=== PATIENT | female | born 1965 | race Two or more races ===

== ENCOUNTER 2025-02-27 16:59 | Inpatient (IN) | payer MEDICAID, SELFPAY ==
[2025-02-27] VITALS (7 sets, daily range): BP systolic 90–114; BP diastolic 53–67; PULSE 76–124; RESP 12–76; TEMP 36.5–37.7; O2SAT 95–98; BMI 32.9
--- NOTE | 2025-02-27 17:12 | EKG_ITS ---
[facility] Test Date: 2025-02-27 Pat Name: WALTER WEINBERG Department: Room: - Gender: Female [employer]: : 1965 Requested By: Airam Simon Order Number: [id number] Reading MD: Airam Simon Measurements Intervals [place] Rate: 102 P: 14 ID: [id number] QRS: -13 QRSD: 83 T: 32 QT: 316 QTc: 413 Interpretive Statements SINUS TACHYCARDIA POSSIBLE ANTERIOR MYOCARDIAL INFARCTION , PROBABLY OLD [30 ms Q WAVE IN V3/V4, OR R < 0.2 mV IN V4] PROBABLE INFERIOR MYOCARDIAL INFARCTION , PROBABLY OLD [35 ms Q WAVE IN II/aVF] No previous ECG available for comparison /store/S0/[id number].pdf
[2025-02-27 18:22] LABS: Base Excess, Venous 1 (-3-3); O2 Saturation, Venous 84 % (96-97); PCO2, Venous 32 mmHg (36-56); PO2, Venous 42 mmHg (15-58); pH, Venous 7.48 (7.33-7.66)
[2025-02-27 18:23] LABS: Lactate (Lactic Acid) 2.6 mMol/L (0.4-2.0)
[2025-02-27 18:44] LABS: Basophils # (Auto) 0.1 Thou/mm3 (0.0-0.2); Basophils % (Auto) 0 % (0-2.5); Eosinophils # (Auto) 0.1 Thou/mm3 (0.0-0.5); Eosinophils % (Auto) 0 % (0-10); Hematocrit 38.8 % (36.0-46.0); Hemoglobin 13.8 g/dL (12.0-16.0); Immature Granulocytes % (Auto) 1 % (0-0); Immature Granulocytes Auto 0.22 Thou/mm3 (0.00-0.00); Lymphocytes # (Auto) 0.8 Thou/mm3 (1.0-4.8); Lymphocytes % (Auto) 4 % (10-50); Mean Corpuscular HGB Conc 35.6 g/dl (31.0-37.0); Mean Corpuscular Volume 87 fL (80-100); Monocytes # (Auto) 0.8 Thou/mm3 (0.0-0.8); Monocytes % (Auto) 4 % (0-12); Neutrophils # (Auto) 16.3 Thou/mm3 (1.8-7.7); Neutrophils % (Auto) 90 % (37-80); Nucleated Red Blood Cell % 0 /100 WBC (0); Platelet Count 164 Thou/mm3 (140-440); RDW Standard Deviation 38.4 fL (36.4-46.3); Red Blood Count 4.45 Miln/mm3 (4.00-5.20); White Blood Count 18.2 Thou/mm3 (3.6-11.0)
[2025-02-27 18:52] LABS: Beta Hydroxybutyrate 0.4 mmol/L (<0.6)
[2025-02-27 19:33] LABS: Alanine Aminotransferase 25 U/L (10-49); Albumin, Serum 4.4 gm/dL (3.4-4.8); Albumin/Globulin Ratio 1.4 (1.2-2.2); Alkaline Phosphatase 109 U/L (46-116); Anion Gap 13 (7-16); Aspartate Amino Transferase 41 U/L (0-34); BUN/Creatinine Ratio 14 Ratio (12-20); Bilirubin,Total 1.5 mg/dL (0.3-1.2); Blood Urea Nitrogen 19 mg/dL (9-23); Calcium 9.8 mg/dL (8.3-10.6); Calcium (Corrected) 9.8 mg/dL (8.5-10.1); Chloride 96 mMol/L (98-107); Creatinine (Component) 1.4 mg/dL (0.6-1.3); Estimated Creatinine Clearance 42.3 mL/min (>60); Globulin 3.1 gm/dL (2.3-3.5); Osmolality,Calculated 285 (275-295); Potassium 4.8 mMol/L (3.4-5.1); Sodium 132 mMol/L (136-145); Total Protein 7.5 gm/dL (5.7-8.2); Troponin I 0.024 ng/mL (0.0-0.045); eGFR 43 See Note
[2025-02-27 19:33] LABS: Collection Type, Urine Clean Catch
[2025-02-27 19:39] LABS: Glucose 441 mg/dL (74-106)
[2025-02-27 20:18] LABS: Bilirubin,Urine Negative (Negative); Blood,Urine 1+ (Negative); Clarity,Urine Turbid (Clear/Hazy); Color,Urine Lt-Yellow (Lt Yel-Yel); Glucose, Urine 4+ (Negative); Ketones,Urine 1+ (Negative); Leukocyte Esterase,Urine Positive (Negative); Nitrite,Urine Negative (Negative); PH,Urine 6.5 (5.0-7.0); Protein,Urine 2+ (Neg - Trace); RBC,Urine 13 /hpf (0-3); Specific Gravity,Urine 1.024 (1.001-1.035); Squamous Epithelial Cell,Urine 1 /hpf (0-5); Urobilinogen,Urine Negative mg/dL (0.0-1.0); WBC,Urine 236 /hpf (0-5)
[2025-02-27 20:41] LABS: Glucose Estimated Average 200 mg/dL (80-131); Hemoglobin A1C 8.6 % Hgb (4.8-6.0)
[2025-02-27 21:10] LABS: Reflex Lactate? Y
[2025-02-27 21:49] LABS: Lactic Acid, 3 HR 1.6 mMol/L (0.4-2.0)
[2025-02-27] MEDS: SODIUM CHLORIDE 0.9% 1000 ML 1,503 ML 1503 ML IV (22:27)
[2025-02-27 22:42] LABS: INR 1.1 (0.9-1.3); Partial Thromboplastin Time 24.5 Seconds (22.0-36.0)
[2025-02-27 22:46] LABS: B-Type Natriuretic Peptide 163 pg/mL (0-100)
[2025-02-27] MEDS: cefTRIAXone/D5w 1gm IV premix 1 GM/50 ML BAG IV (23:33)
[2025-02-27 23:45] LABS: Magnesium 1.7 mg/dL (1.6-2.6); Phosphorous 1.1 mg/dL (2.4-5.1); Procalcitonin 71.29 ng/ml (0.0-0.49)
[2025-02-28] VITALS (18 sets, daily range): BP systolic 89–182; BP diastolic 49–90; PULSE 65–149; RESP 12–95; TEMP 36–39.4; O2SAT 95–99; BMI 19.4
[2025-02-28 00:34] LABS: LDH (Lactate Dehydrogenase) 232 U/L (120-246)
--- NOTE | 2025-02-28 01:57 | XR_ITS ---
Examination: CT abdomen and pelvis without contrast. Coronal 3-D reconstructions. Sagittal 2-D reconstructions. Date and time of exam:February 28, 2025 at 0247 hours INDICATIONS: Abdominal pain and right flank pain onset today CTDI: vol (mGy): 7.89 DLP: (mGycm): 463 Technique: Axial images of the abdomen have been obtained, 3 mm slice thickness Intravenous contrast material has not been administered. Low dose protocols were performed. One or more of the following dose reduction techniques were used; automated exposure control, adjustment of the mA and/or KV according to patient size, use of iterative reconstruction technique. Findings: No focal liver or splenic lesions No gallstones No pancreatic or adrenal mass 3 mm right renal calculus Mild right hydronephrosis no ureteral calculi Normal appendix No bladder mass or bladder calculi IMPRESSION: Findings most consistent with right urinary tract infection, clinical correlation advised
--- NOTE | 2025-02-28 02:08 | PD.EDFEVER ---
ED Fever RME/HPI General Chief Complaint: Fever Stated Complaint: FEVER, GENERAL WEAKNESS Time Seen by Provider: 02/27/25 17:12 Arrival date/time: 02/27/25 16:59 RME / HPI RME / HPI Narrative: Dr. Mcwilliams?s Main ED Evaluation: Related Data Home Medications ?Medication ?Instructions ?Recorded ?Confirmed glipizide 5 mg tablet 5 mg PO ACBR #0 tabs 09/18/14 lisinopril 20 mg tablet 20 mg PO QDAY #0 tabs 09/18/14 Allergies Allergy/AdvReac Type Severity Reaction Status Date / Time NKA* Allergy Uncoded 02/27/25 17:40 Review of Systems Review of Systems Systems Reviewed: All systems reviewed, normal except as documented Past Medical History Social History SMOKING STATUS: Never smoker Physical Exam Narrative Physical exam: GENERAL APPEARANCE: alert and oriented x 4, well-developed, well-nourished, no acute distress VITALS: All vitals were reviewed and the pulse ox is % on room air, which is normal according to my interpretation. HEENT: Normocephalic, atraumatic; pupils equal, round, reactive to light; EOMI; mucous membranes pink, moist; oropharynx clear NECK: Supple LUNGS: CTABL; no wheezes, no rales, no rhonchi HEART: Regular rate, regular rhythm; normal S1, S2; no murmurs ABDOMEN: non distended; normal BS; soft, no tenderness, no guarding, no rebound; no masses, no organomegaly, no hernia BACK: no CVA tenderness EXTREMITIES: atraumatic; no edema NEUROLOGIC: awake; alert and oriented x4; cranial nerves II-XII grossly intact; no focal sensory or motor deficits PSYCHIATRIC: appropriate mood and affect SKIN: warm, dry, normal color; no rashes Course Quality Measures none Orders Category Date Time Status Bedside Blood Glucose STAT Care 02/27/25 17:15 Completed Bedside COVID-19 Antigen Test NOW Care 02/28/25 00:23 Active Manager Office Services STAT Care 02/27/25 21:46 Active Continuous Pulse Oximetry STAT Care 02/27/25 21:46 Completed EKG (ED ONLY) *Do not use* NOW Care 02/27/25 17:12 Completed Insert IV NOW Care 02/27/25 21:46 Active NPO STAT Care 02/27/25 21:46 Active Orthostatic Vitals X1 Care 02/27/25 17:12 Active Strict Intake and Output Routine Care 02/27/25 21:[address] abdomen pelvis wo con Stat Exams 02/28/25 01:57 Ordered EKG (ED Only) Stat Exams 02/27/25 17:12 Ordered B-Type Natriuretic Peptide Stat Lab 02/27/25 21:44 Completed Beta Hydroxybutyrate Stat Lab 02/27/25 17:56 Completed Blood Culture (Lab) Stat Lab 02/27/25 22:15 Received CBC Stat Lab 02/27/25 17:56 Completed Comprehensive Metabolic Panel Stat Lab 02/27/25 17:56 Completed Glycohemoglobin w (eAG) Stat Lab 02/27/25 17:56 Completed LDH (Lactate Dehydrogenase) Stat Lab 02/27/25 21:44 Completed Lactate (Lactic Acid) Stat Lab 02/27/25 17:56 Completed Lactic Acid, 3 HR Stat Lab 02/27/25 21:44 Completed Magnesium Stat Lab 02/27/25 21:44 Completed Partial Thromboplastin Time Stat Lab 02/27/25 17:56 Completed Phosphorous Stat Lab 02/27/25 21:44 Completed Procalcitonin Stat Lab 02/27/25 21:44 Completed Prothrombin Time with INR Stat Lab 02/27/25 17:56 Completed Troponin I Stat Lab 02/27/25 17:56 Completed Urinalysis Stat Lab 02/27/25 19:23 Completed Urine Culture Stat Lab 02/27/25 19:23 Received VBG [Venous Blood Gas] Stat Lab 02/27/25 17:56 Completed Acetaminophen Supp [Tylenol Supp] Med 02/27/25 21:45 Active 650 mg NM Q8HR PRN Ondansetron Inj [Zofran Inj] Med 02/27/25 21:45 Active 4 mg IV Q6HR PRN Sodium Chloride 0.9% 1000 ml [Ns] 1,000 ml Med 02/28/25 01:59 Active IV 999 mls/hr Sodium Chloride 0.9% 1000 ml [Ns] 1,503 ml Med 02/27/25 21:45 Discontinued IV 1,503 mls/hr cefTRIAXone/D5w 1gm IV premix [Rocephin/D5w 1gm IV Med 02/27/25 21:45 Discontinued premix] 1 gm in 50 ml IV X1 Oxygen Delivery NOW RT 02/27/25 21:46 Active Vital Signs Vital signs: Vital Signs Temperature 99.8 F 02/27/25 17:23 Pulse Rate 115 H 02/27/25 17:23 Respiratory Rate 16 02/27/25 17:23 Blood Pressure 114/63 02/27/25 17:23 Pulse Oximetry (%) 95 02/27/25 17:23 Oxygen Delivery Method Room Air 02/27/25 17:23 Fever MDM Narrative MDM Narrative:: Scribe Attestation: 02/28/25 Eber Gay, Tiff Ramirez am scribing for and in the presence of Dr. Mcwilliams. Patient does not have an elevated anion gap or ketonemia. Her ABG does not show acidosis. There is no evidence of DKA. Patient data External records reviewed:: [facility] previous records (Per chart review, patient has no previous ED visits or admissions to this facility.) Clinical information provided by:: patient Social determinants that could affect healthcare access:: none Evaluation data The following diagnostics were reviewed and interpreted by me:: lab results and radiology exam(s) Lab and/or radiology exams considered but not ordered:: none Medications / Prescriptions Medications or Prescriptions considered but not ordered:: none Medication administrations:: Medication Administration History Acetaminophen (Acetaminophen Supp 650 Mg Supp) 650 mg NM Q8HR PRN PRN Reason: Fever > 100.4 Stop: 03/29/25 21:44 Sodium Chloride (Ns) 1,000 mls @ 999 mls/hr IV .Q1H1M ONE Stop: 02/28/25 02:59 Ondansetron HCl (Ondansetron Inj 2 Mg/Ml Inj 2 Ml) 4 mg IV Q6HR PRN PRN Reason: NAUSEA OR VOMITING Stop: 03/29/25 21:44 Discontinued Medications Ceftriaxone Sodium/Dextrose (Rocephin/D5w 1gm Iv Premix) 1 gm in 50 mls @ 100 mls/hr IV X1 ONE Stop: 02/27/25 22:14 Last Infusion: 02/28/25 00:05 Dose: Infused Documented By: Admin: 02/27/25 23:33 Dose: 100 mls/hr Documented By: CVL Sodium Chloride (Ns) 1,503 mls @ 1,503 mls/hr 30 ml/kg infuse over 60 min (1503 ml) IV .Q1H ONE Stop: 02/27/25 22:44 Last Infusion: 02/28/25 00:05 Dose: Infused Documented By: Admin: 02/27/25 22:27 Dose: 1,503 mls/hr Documented By: CVL see above Discharge Plan Plan Patient Disposition: Admit Acute Care w/in Hospital Disposition Comment: Stable Prescriptions/Referrals Prescriptions/Med Rec: No Action lisinopril 20 MG tablet 20 mg PO QDAY Qty: 0 glipizide 5 MG tablet 5 mg PO ACBR Qty: 0 Referrals: Praveen Ramirez MD [Primary Care Provider] - In 1 week Problem List Clinical Impression: Sepsis, Pyelonephritis, Hyperglycemia without ketosis Patient/Caregiver Discharge Instructions Additional Instructions: ADMIT TO RESIDENT SERVICE Print Language: Macedonian Stand Alone Forms: Debbie Award Info., Patient Portal Info Letter PA/PHYSICAL BIOCHEMIST Supervising Physician PA/PHYSICAL BIOCHEMIST Supervising Physician: DR. MCWILLIAMS
[2025-02-28] MEDS: SODIUM CHLORIDE 0.9% 1000 ML 1,000 ML 999 ML IV ×2 (02:24→11:34)
--- NOTE | 2025-02-28 04:33 | PRELIM_ITS ---
CT scan of the abdomen and pelvis without intravenous contrast (axial sections with sagittal and coronal reformats) February 28, 2025 0247 hours Clinical History: right flank pain No prior study is available for comparison. Findings: Bibasilar dependant atelectasis is seen. The right kidney is enlarged with perinephric fat stranding. There is mild hydroureteronephrosis. No evidence of ureteric calculus. The liver, gallbladder, pancreas, spleen, left kidney and adrenals are unremarkable on this noncontrast study. Fluid filled small bowel loops and right colon are noted, nonspecific. No evidence of bowel dilatation. The appendix is within normal limits. The urinary bladder is unremarkable. There is no free fluid or free air. There are atheromatous changes of the abdominal aorta and its visceral branches. There is no adenopathy. A small fat-containing umbilical hernia is present. Mild degenerative changes are identified in the spine. Impression: Findings are suspicious for right pyelonephritis. Recommend clinical correlation and followup with intravenous contrast. Other findings as described above. Report Electronically Signed By: Adam Ingram 02/28/2025 4:33:20 AM [EST]
[2025-02-28] MEDS: ACETAMINOPHEN IVPB 1,000 MG/100 ML VIAL 250 MG IV ×2 (04:50→11:50)
--- NOTE | 2025-02-28 05:03 | PD.EDADDENDU ---
Emergency Room Addendum Addendum Narrative: There is no note by the midlevel. Will tell the oncoming provider in the morning that GAY Cordon needs to write her note and sign it. CT result as below. 0502: Discussed case with [the resident physician, attending Dr. Tavarez] from Hospitalist service regarding admission. Discussed patients ED course, exam findings, labs, and radiology results. The Hospitalist [agrees] to accept the patient for admission. RADIOLOGY RESULTS: [place] Preliminary Report Draft [facility] Record#: [id number] Birthdate: 1965 Age/Sex: 60 / F Location: [facility] Attending Dr: Ordering Physician: Date of Service: Procedure(s): Accession Number(s): cc: ~ CT scan of the abdomen and pelvis without intravenous contrast (axial sections with sagittal and coronal reformats) February 28, 2025 0247 hours Clinical History: right flank pain No prior study is available for comparison. Findings: Bibasilar dependant atelectasis is seen. The right kidney is enlarged with perinephric fat stranding. There is mild hydroureteronephrosis. No evidence of ureteric calculus. The liver, gallbladder, pancreas, spleen, left kidney and adrenals are unremarkable on this noncontrast study. Fluid filled small bowel loops and right colon are noted, nonspecific. No evidence of bowel dilatation. The appendix is within normal limits. The urinary bladder is unremarkable. There is no free fluid or free air. There are atheromatous changes of the abdominal aorta and its visceral branches. There is no adenopathy. A small fat-containing umbilical hernia is present. Mild degenerative changes are identified in the spine. Impression: Findings are suspicious for right pyelonephritis. Recommend clinical correlation and followup with intravenous contrast. Other findings as described above. Report Electronically Signed By: Adam Ingram 02/28/2025 4:33:20 AM
--- NOTE | 2025-02-28 06:20 | PD.RESHP ---
Documentation for date of: 02/28/25 [facility] History of Present Illness History of present illness: The patient is a 60-year-old female with significant past medical history of essential hypertension, diabetes mellitus type 2, hyperlipidemia presented to ED with chief complaint of burning micturition for 4 days. Her symptoms were associated with right lower abdominal pain and generalized weakness for past 2 days. She also reported severe chills, and subjective fever, associated with drenching. She was none comprehensive while interacting with her family members and has been on her bed for past 2 days, and was brought to the ED. During my evaluation, patient was alert and oriented x 3. She reported having 1 episode of vomiting, but denied any headache, lightheadedness, chest pain, SOB, any changes in bowel habit or leg swelling. In the ED her vitals were significant for pulse 115, white count 18.2, and temperature reading up to 102.9 meeting 3/4 SIRS criteria, with initial altered mental status, sodium 132, chloride 96, creatinine 1.4, GFR 43, blood sugar 441, A1c 8.6, phosphorus 1.1, total bilirubin 1.5, AST 41, BNP 163, Pro-Crow 71.29, UA revealed turbid urine, protein 2+, glucose 4+, ketones 1+, blood 1+, leukocyte esterase positive, WBC 236, RBC 13, and abdomen/pelvis CT was significant for prelim read of right pyelonephritis without any renal stones. PMH: As mentioned above PSHX: Hysterectomy a long time ago Social history: Denies alcohol, smoking or illicit drug use Medications: Janumet 50/thousand mg daily, others to be reconciled Allergies: No known allergies Review of Systems Review of Systems Systems Reviewed: All systems reviewed, normal except as documented Exam Vital Signs Temp Pulse Resp BP Pulse Ox O2 Del Method 98.6 F 111 H 18 103/55 L 95 Room Air 02/28/25 05:58 02/28/25 05:58 02/28/25 05:58 02/28/25 05:58 02/28/25 05:58 02/28/25 05:58 Narrative Exam General: No acute distress, Alert and Oriented x 3 HEENT: Moist mucous membranes, oropharynx clear Neck: Supple, No masses, No JVD CVS: S1S2 Regular rate and rhythm, No murmurs, rubs or gallops Lungs: Clear to auscultation with no accessory use, no wheeze no rhonchi Abd: Soft, White sign negative, +BS, no organomegaly, severe right renal angle tenderness Ext: No edema, warm and well perfused Skin: No rash Psych: Appropriate mood and affect Results: Labs 02/28/25 09:46 02/28/25 11:40 Labs: Short CBC 02/27/25 Range/Units 17:56 WBC 18.2 H (3.6-11.0) Thou/mm3 Hgb 13.8 (12.0-16.0) g/dL Hct 38.8 (36.0-46.0) % Plt Count 164 (140-440) Thou/mm3 BMP 02/27/25 17:56 Sodium 132 L Potassium 4.8 Chloride 96 L Carbon Dioxide 23.0 BUN 19 Creatinine 1.4 H Glucose 441 H* Calcium 9.8 Cardiac Enzymes 02/27/25 Range/Units 17:56 Troponin I 0.024 (0.0-0.045) ng/mL Liver Function 02/27/25 Range/Units 17:56 Total Bilirubin 1.5 H (0.3-1.2) mg/dL AST 41 H (0-34) U/L ALT 25 (10-49) U/L Alkaline Phosphatase 109 (46-116) U/L Albumin 4.4 (3.4-4.8) gm/dL Urine 02/27/25 Range/Units 19:23 Urine Color Lt-Yellow (Lt Yel-Yel) Urine Clarity Turbid A (Clear/Hazy) Urine pH 6.5 (5.0-7.0) Ur Specific [place] 1.024 (1.001-1.035) Urine Protein 2+ A (Neg - Trace) Urine Glucose (UA) 4+ A (Negative) ABG Interpretation ABG results: 02/27/25 17:56 VBG pH 7.48 VBG pCO2 32 L VBG pO2 42 VBG Base Excess 1 Quality Measures Quality Measures VTE prophylaxis Medications Home Medications and Allergies Home Medications ?Medication ?Instructions ?Recorded ?Confirmed ?Type lisinopril 20 mg tablet 20 mg PO QDAY #0 tabs 09/18/14 02/28/25 History atenolol 25 mg tablet 25 mg PO QDAY 02/28/25 02/28/25 History glimepiride 2 mg tablet 2 mg PO BID 02/28/25 02/28/25 History simvastatin 20 mg tablet 20 mg PO HS 02/28/25 02/28/25 History Allergies Allergy/AdvReac Type Severity Reaction Status Date / Time No Known Allergies Allergy Unverified 02/28/25 09:12 Visit Medications Acetaminophen (Acetaminophen Supp 650 Mg Supp) 650 mg CA Q8HR PRN PRN Reason: Fever > 100.4 Stop: 03/29/25 21:44 Hydrocodone Bitart/Acetaminophen (Hydrocodone/Apap 5/325 Tablet) 1 tab PO Q6HR PRN PRN Reason: PAIN SCALE 4-6 (Moderate Stop: 03/05/25 05:57 Dextrose (Dextrose 50%-Water Inj 50 Ml Syringe) 25 ml IV Q15MIN PRN PRN Reason: BG 50-70 responsive npo pt Stop: 03/30/25 06:17 Dextrose (Dextrose 50%-Water Inj 50 Ml Syringe) 50 ml IV Q15MIN PRN PRN Reason: BG <50 OR BG <70 & pt unresponsive Stop: 03/30/25 06:17 Glucagon (Glucagon Inj 1 Mg Vial) 1 mg IM Q15MIN PRN PRN Reason: BG <70, and no IV access Heparin Sodium (Porcine) (Heparin Sod Inj 5000 Unit/Ml Vial) 5,000 unit SC Q8HR ALECIA Stop: 03/14/25 05:59 Hydromorphone HCl (Hydromorphone Inj 2 Mg/Ml Vial) 0.5 mg IVP Q30MIN PRN PRN Reason: PAIN Stop: 03/02/25 05:59 Acetaminophen (Ofirmev Inj) 1,000 mg in 100 mls @ 250 mls/hr IV Q6HR ALECIA Stop: 03/01/25 00:23 Last Infusion: 02/28/25 05:08 Dose: Infused Ceftriaxone Sodium/Dextrose (Rocephin/D5w 1gm Iv Premix) 1 gm in 50 mls @ 100 mls/hr IV QDAY ALECIA Stop: 03/07/25 08:59 Potassium Phosphate (Pot Phos 15 Mmol In Ns 250 Ml) 15 mmol in 250 mls @ 62.5 mls/hr IV Q4HR ALECIA Stop: 02/28/25 13:59 Insulin Glargine (Insulin Glargine (Lantus) 5 Unit/0.05 Ml (Per 5 Units)) 6 unit SC QDAY [facility] Stop: 03/30/25 08:59 Insulin Human Lispro (Insulin Lispro (Admelog) 1 Unit/0.01 Ml Unit) 0 unit SC ACHS [facility]; Protocol Stop: 03/30/25 07:29 Ondansetron HCl (Ondansetron Inj 2 Mg/Ml Inj 2 Ml) 4 mg IV Q6HR PRN PRN Reason: NAUSEA OR VOMITING Stop: 03/29/25 21:44 Discontinued Medications Ceftriaxone Sodium/Dextrose (Rocephin/D5w 1gm Iv Premix) 1 gm in 50 mls @ 100 mls/hr IV X1 ONE Stop: 02/27/25 22:14 Last Infusion: 02/28/25 00:05 Dose: Infused Sodium Chloride (Ns) 1,503 mls @ 1,503 mls/hr 30 ml/kg infuse over 60 min (1503 ml) IV .Q1H ONE Stop: 02/27/25 22:44 Last Infusion: 02/28/25 00:05 Dose: Infused Sodium Chloride (Ns) 1,000 mls @ 999 mls/hr IV .Q1H1M ONE Stop: 02/28/25 02:59 Last Infusion: 02/28/25 03:46 Dose: Infused Assessment & Plan Plan The patient is a [age]-year-old female with significant past medical history of essential hypertension, diabetes mellitus type 2, hyperlipidemia presented to ED with chief complaint of burning micturition for 4 days. Her symptoms were associated with right lower abdominal pain and generalized weakness for past 2 days. She also reported severe chills, and subjective fever, associated with drenching. The patient is being managed for severe sepsis secondary to right pyelonephritis. #Severe sepsis secondary to #Right pyelonephritis Patient presented with right lower abdominal pain, burning micturition and generalized weakness. Her symptoms were associated with severe chills, subjective fever and drenching. Met 3/4 SIRS criteria with pulse 115, white count 18.2, temperature meeting up to 102.9, and initially endorgan failure as altered mental status with lactic acid of 2.6. Pro-Crow 71.29, UA revealed turbid urine, protein 2+, glucose 4+, ketones 1+, blood 1+, leukocyte esterase positive, WBC 236, RBC 13, and abdomen/pelvis CT was significant for prelim read of right pyelonephritis without any renal stones. Patient received bolus IV normal saline 30 cc/kg body weight, and was given 1 dose of IV ceftriaxone 1 g. - Continue on ceftriaxone IV 1 g daily - Urine and blood culture sent - Daily a.m. labs for CBC, CMP and electrolytes - Pain management with p.o. Perkins and IV hydromorphone as needed - Continue to monitor closely #HHS #Diabetes mellitus type 2 Patient presented with blood sugar of 441 and altered mental status A1c 8.6 - Started on sliding scale insulin lispro ACHS and Lantus 7 units daily - Daily a.m. labs for blood sugar #Severe hypophosphatemia Presented with phosphorus of 1.1 Likely secondary to sepsis - Ordered 30 mmol of potassium phosphate - Continue to monitor phosphate level and replete as needed #MOOKIE Prerenal secondary to dehydration and poor oral intake in the setting of sepsis secondary to right pyelonephritis Presented with creatinine 1.4 and GFR 43, no previous labs to compare Patient received bolus IV normal saline 30 cc/kg body weight - Avoid nephrotoxic drugs - Renally dose medications - Daily a.m. labs for CMP and electrolytes #Mild hyperbilirubinemia #Mild transaminitis Likely secondary to severe sepsis Presented with total bilirubin of 1.5 and AST 41, but patient did not had any right upper quadrant abdominal pain and White sign was negative - Continue to treat underlying sepsis - Continue to monitor daily a.m. labs for CMP #Mild hypovolemic hypoosmolar hyponatremia Likely in the setting of decreased p.o. intake further complicated by severe sepsis secondary to right pyelonephritis Presented with sodium 132 and chloride 96 -Patient received 30 cc/kg bolus IV normal saline in the ED - Continue to monitor CMP in the morning Health maintenance: Dispo: Patient admitted to telemetry unit for further management of severe sepsis secondary to right pyelonephritis Diet: Carb consistent diet DVT prophylaxis: Subcu heparin CODE STATUS: Full code The patient's management plan was discussed with my attending physician MD Luke King MD, PGY2 Attending Provider Attestation/Addendum I attest that I was physically present for the evaluation, physical examination, lab and imaging review of the patient with the residents. I discussed the case with the residents and agree with the findings and plans of care as documented above. Patient is a 60-year-old female with past medical history of hypertension, diabetes mellitus, hyperlipidemia who presented to the ED with complaints of burning micturition for 4 days. Patient is also having right flank pain. In the ED, she was found to be tachycardic, had WBC count of 18.2, temperature 102.9, creatinine 1.4, blood glucose 447, total bilirubin 1.5, procalcitonin 71.29. Urinalysis showed turbid urine with [address] abdomen/pelvis showed right pyelonephritis without renal stones. We will admit the patient for management of sepsis secondary to right pyelonephritis. We will start her on IV Rocephin. Patient also received 30 cc/kg IV fluid bolus. We will obtain cultures and start her on analgesics as needed. Also started insulin regimen for diabetes. Valerio Tavarez MD
[2025-02-28] MEDS: INSULIN LISPRO (AdmeLOG) 1 UNIT/0.01 ML UNIT SC ×4 (07:36→21:05)
[2025-02-28] MEDS: POT PHOS 15 mMol in NS 250 ML 15 MMOL/250 ML BAG 62.5 MMOL IV ×2 (07:54→11:51)
[2025-02-28] MEDS: cefTRIAXone/D5w 1gm IV premix 1 GM/50 ML BAG IV (08:54)
[2025-02-28] MEDS: INSULIN GLARGINE (Lantus) 5 UNIT/0.05 ML (PER 5 UNITS) 6 UNIT SC (09:03)
[2025-02-28] MEDS: Magnesium Sulfate 2 GM Ivpb 2 GM/50 ML BAG IV (10:09)
[2025-02-28 10:21] LABS: Basophils % (Auto) 0 % (0-2.5); Eosinophils % (Auto) 0 % (0-10); Hematocrit 33.9 % (36.0-46.0); Immature Granulocytes % (Auto) 1 % (0-0); Immature Granulocytes Auto 0.13 Thou/mm3 (0.00-0.00); Lymphocytes # (Auto) 0.9 Thou/mm3 (1.0-4.8); Lymphocytes % (Auto) 6 % (10-50); Mean Corpuscular HGB Conc 35.4 g/dl (31.0-37.0); Mean Corpuscular Volume 88 fL (80-100); Monocytes # (Auto) 0.4 Thou/mm3 (0.0-0.8); Monocytes % (Auto) 2 % (0-12); Neutrophils # (Auto) 14.6 Thou/mm3 (1.8-7.7); Neutrophils % (Auto) 91 % (37-80); Nucleated Red Blood Cell % 0 /100 WBC (0); Platelet Count 135 Thou/mm3 (140-440); RDW Standard Deviation 38.8 fL (36.4-46.3); Red Blood Count 3.87 Miln/mm3 (4.00-5.20)
[2025-02-28 10:56] LABS: Alanine Aminotransferase 22 U/L (10-49); Albumin, Serum 3.6 gm/dL (3.4-4.8); Albumin/Globulin Ratio 1.5 (1.2-2.2); Alkaline Phosphatase 119 U/L (46-116); Anion Gap 12 (7-16); Aspartate Amino Transferase 31 U/L (0-34); BUN/Creatinine Ratio 16 Ratio (12-20); Bilirubin,Total 0.6 mg/dL (0.3-1.2); Blood Urea Nitrogen 23 mg/dL (9-23); Calcium (Corrected) 8.3 mg/dL (8.5-10.1); Carbon Dioxide 22.1 mMol/L (20.0-31.0); Chloride 104 mMol/L (98-107); Creatinine (Component) 1.4 mg/dL (0.6-1.3); Estimated Creatinine Clearance 43.9 mL/min (>60); Globulin 2.4 gm/dL (2.3-3.5); Glucose 147 mg/dL (74-106); Osmolality,Calculated 282 (275-295); Potassium 3.8 mMol/L (3.4-5.1); Sodium 138 mMol/L (136-145); eGFR 43 See Note
--- NOTE | 2025-02-28 11:24 | CHAP ---
Patient was visited by the Spiritual Care Volunteer who prayed for them. (Volunteer was in the hospital from 10:27-11:24).
[2025-02-28] MEDS: TAMSULOSIN HCL 0.4 MG CAPSULE PO (11:51)
[2025-02-28 12:33] LABS: Albumin, Serum 3.4 gm/dL (3.4-4.8); Anion Gap 13 (7-16); BUN/Creatinine Ratio 18 Ratio (12-20); Blood Urea Nitrogen 23 mg/dL (9-23); Calcium 7.8 mg/dL (8.3-10.6); Calcium (Corrected) 8.3 mg/dL (8.5-10.1); Carbon Dioxide 20.9 mMol/L (20.0-31.0); Chloride 105 mMol/L (98-107); Creatinine (Component) 1.3 mg/dL (0.6-1.3); Estimated Creatinine Clearance 47.2 mL/min (>60); Glucose 151 mg/dL (74-106); Osmolality,Calculated 284 (275-295); Phosphorous 1.6 mg/dL (2.4-5.1); Potassium 3.4 mMol/L (3.4-5.1); Sodium 139 mMol/L (136-145); eGFR 47 See Note
--- NOTE | 2025-02-28 14:27 | ESPR_ITS ---
<Statement entered by Jolynn Martinez MD - 02/28/25 14:53> No acute overnight events. CT abdomen/pelvis was done which revealed 3 mm of stone, nonobstructive, mild right hydronephrosis. Urine culture revealed GNR, blood culture still pending. Will continue with IV ceftriaxone. Patient also received 1 L of bolus. WBC downtrending, patient is afebrile, patient 7, foot. Continue IV antibiotics, follow-up with final. Monitor blood sugar accordingly. I personally saw and examined the patient and discussed the assessment and plan with the entire medicine team, including my attending , Jolynn Martinez M.D. PGY-2 Disclaimer: Despite multiple revisions, due to the dictation software being used, the document bellow may not be free of grammatical errors including phonetic/typographic errors. However, this does not deter from our commitment to providing health care in the patient's best interest in mind. Documentation for date of: 02/28/25 Subjective Subjective Interval history: Patient was an overnight admit who presented with pylonephritis w/ a 3mm stone and elevated WBC count of 16.0 Patient stated right flank and right lower quadrant pain came on abruptly and has never happened before. Patient deneied history of kidney stones. Patient deneid history of abdominal pain. Increase pain with urination and increase frequency for several days. After being admitted onto floors nursing staff reproted 3 bowel movements, likely secondary to IV Acetaminophen use vs antibiotic use. Negative for foal smell or greasy stool. Pending med recs. Exam Vital Signs Temp Pulse Resp BP Pulse Ox O2 Del Method 99.0 F 102 H 18 94/56 L 99 Room Air 02/28/25 11:59 02/28/25 12:00 02/28/25 11:59 02/28/25 11:59 02/28/25 11:59 02/28/25 11:59 Narrative Exam General Appearance: Alert & Oriented X3, well-nourished female who is lying in bed in mild discomfort HEENT: Skull symmetrical and atraumatic. Conjunctivae pin and moist. Pupils equal, round, reactive to light and accommodation (PERRL). External ear without lesion or discharge. Straight, nares patient, mucosa pink, no discharge. No thyroid nodule appreciated. No cervical lymphadenopathy. Cardio: Normal Rate and Rhythm with S1 and S2 heart sounds. No murmurs or extra heart sounds auscultated. No bruits on carotid auscultation. No peripheral edema or cyanosis. Lungs: Symmetric with good expansion. Chest and back non-tender. Breath sounds vesicular without crackles, wheezing or rhonchi Abdomen: Non-tender, Non-distended, Normal Reactive Bowel Sounds, Right Flank pain Neuro: Alert, cooperative, oriented to person, place, and time. Speech clear. CN grossly intact. Upper motor strength 5/5 and Lower motor strength 5/5. Sensation intact. Objective Labs 02/28/25 09:46 02/28/25 11:40 Labs: Laboratory Results - last 24 hr 02/27/25 02/27/25 02/27/25 17:56 19:23 21:44 WBC 18.2 H RBC 4.45 Hgb 13.8 Hct 38.8 MCV 87 MCH 31.0 MCHC 35.6 RDW Std Deviation 38.4 Plt Count 164 Neut % (Auto) 90 H Lymph % (Auto) 4 L [place] % (Auto) 4 Eos % (Auto) 0 Baso % (Auto) 0 Neut # (Auto) 16.3 H Lymph # (Auto) 0.8 L [place] # (Auto) 0.8 Eos # (Auto) 0.1 Baso # (Auto) 0.1 Immature Gran # (Auto) 0.22 H Absolute Nucleated RBC 0.00 Immature Gran % 1 H Nucleated RBC % 0 PT 12.0 INR 1.1 APTT 24.5 VBG pH 7.48 VBG pCO2 32 L VBG pO2 42 VBG O2 Sat (Aman) 84 L VBG Base Excess 1 Sodium 132 L Potassium 4.8 Chloride 96 L Carbon Dioxide 23.0 Anion Gap 13 BUN 19 Creatinine 1.4 H Estim Creat Clear Calc 42.3 L eGFR 43 L BUN/Creatinine Ratio 14 Glucose 441 H* Estimated Ave Glu mg/dL 200 H Hemoglobin A1c 8.6 H Calculated Osmolality 285 Lactic Acid 2.6 H 1.6 Calcium 9.8 Corrected Calcium 9.8 Phosphorus 1.1 L Magnesium 1.7 Total Bilirubin 1.5 H AST 41 H ALT 25 Alkaline Phosphatase 109 Lactate Dehydrogenase 232 Troponin I 0.024 B-Natriuretic Peptide 163 H Total Protein 7.5 Albumin 4.4 Globulin 3.1 Albumin/Globulin Ratio 1.4 Beta-Hydroxybutyrate/Acetoacetate 0.4 Procalcitonin 71.29 H Ur Collection Type Clean Catch Urine Color Lt-Yellow Urine Clarity Turbid A Urine pH 6.5 Ur Specific [place] 1.024 Urine Protein 2+ A Urine Glucose (UA) 4+ A Urine Ketones 1+ A Urine Blood 1+ A Urine Nitrite Negative Urine Bilirubin Negative Urine Urobilinogen (Auto) Negative Ur Leukocyte Esterase Positive Urine RBC 13 H Urine WBC 236 H Ur Squamous Epith Cells 1 Urine Bacteria None 02/28/25 02/28/25 02/28/25 09:46 10:05 11:40 WBC 16.0 H RBC 3.87 L Hgb 12.0 Hct 33.9 L MCV 88 MCH 31.0 MCHC 35.4 RDW Std Deviation 38.8 Plt Count 135 L Neut % (Auto) 91 H Lymph % (Auto) 6 L [place] % (Auto) 2 Eos % (Auto) 0 Baso % (Auto) 0 Neut # (Auto) 14.6 H Lymph # (Auto) 0.9 L [place] # (Auto) 0.4 Eos # (Auto) 0.0 Baso # (Auto) 0.0 Immature Gran # (Auto) 0.13 H Absolute Nucleated RBC 0.00 Immature Gran % 1 H Nucleated RBC % 0 PT INR APTT VBG pH VBG pCO2 VBG pO2 VBG O2 Sat (Aman) VBG Base Excess Sodium 138 139 Potassium 3.8 D 3.4 Chloride 104 105 Carbon Dioxide 22.1 20.9 Anion Gap 12 13 BUN 23 23 Creatinine 1.4 H 1.3 Estim Creat Clear Calc 43.9 L 47.2 L eGFR 43 L 47 L BUN/Creatinine Ratio 16 18 Glucose 147 H D [address] Glu mg/dL Hemoglobin A1c Calculated Osmolality 282 284 Lactic Acid Calcium 8.0 L D 7.8 L Corrected Calcium 8.3 L D 8.3 L Phosphorus 1.6 L Magnesium Total Bilirubin 0.6 D AST 31 ALT 22 Alkaline Phosphatase 119 H Lactate Dehydrogenase Troponin I B-Natriuretic Peptide Total Protein 6.0 Albumin 3.6 D 3.4 Globulin 2.4 Albumin/Globulin Ratio 1.5 Beta-Hydroxybutyrate/Acetoacetate Procalcitonin Ur Collection Type Urine Color Urine Clarity Urine pH Ur Specific [place] Urine Protein Urine Glucose (UA) Urine Ketones Urine Blood Urine Nitrite Urine Bilirubin Urine Urobilinogen (Auto) Ur Leukocyte Esterase Urine RBC Urine WBC Ur Squamous Epith Cells Urine Bacteria ABG Interpretation ABG results: 02/27/25 17:56 VBG pH 7.48 VBG pCO2 32 L VBG pO2 42 VBG Base Excess 1 Quality Measures Quality Measures VTE prophylaxis Assessment & Plan Assessment Current Active Medications: Generic Name Dose Route Start Last Admin Trade Name Freq PRN Reason Stop Dose Admin Acetaminophen 650 mg 02/27/25 21:45 Acetaminophen Supp 650 Mg Supp UT 03/29/25 21:44 Q8HR PRN Fever > 100.4 Hydrocodone Bitart/Acetaminophen 1 tab 02/28/25 05:58 Hydrocodone/Apap 5/325 Tablet PO 03/05/25 05:57 Q6HR PRN PAIN SCALE 4-6 (Moderate Dextrose 25 ml 02/28/25 06:18 Dextrose 50%-Water Inj 50 Ml Syringe IV 03/30/25 06:17 Q15MIN PRN BG 50-70 responsive npo pt Dextrose 50 ml 02/28/25 06:18 Dextrose 50%-Water Inj 50 Ml Syringe IV 03/30/25 06:17 Q15MIN PRN BG <50 OR BG <70 & pt unresponsive Glucagon 1 mg 02/28/25 06:18 Glucagon Inj 1 Mg Vial IM Q15MIN PRN BG <70, and no IV access Heparin Sodium (Porcine) 5,000 unit 02/28/25 06:00 02/28/25 07:20 Heparin Sod Inj 5000 Unit/Ml Vial SC 03/14/25 05:59 Not Given Q8HR ALECIA Hydromorphone HCl 0.5 mg 02/28/25 06:00 Hydromorphone Inj 2 Mg/Ml Vial IVP 03/02/25 05:59 Q30MIN PRN PAIN Acetaminophen 1,000 mg in 100 mls @ 250 mls/hr 02/28/25 04:39 02/28/25 11:50 Ofirmev Inj IV 03/01/25 00:23 250 mls/hr Q6HR ALECIA Administration Ceftriaxone Sodium/Dextrose 1 gm in 50 mls @ 100 mls/hr 02/28/25 09:00 02/28/25 08:54 Rocephin/D5w 1gm Iv Premix IV 03/07/25 08:59 100 mls/hr QDAY ALECIA Administration Insulin Glargine 6 unit 02/28/25 09:00 02/28/25 09:03 Insulin Glargine (Lantus) 5 Unit/0.05 Ml (Per 5 Units) SC 03/30/25 08:59 6 unit QDAY ALECIA Administration Insulin Human Lispro 0 unit 02/28/25 07:30 02/28/25 11:53 Insulin Lispro (Admelog) 1 Unit/0.01 Ml Unit SC 03/30/25 07:29 1 unit ACHS ALECIA Administration Protocol Ondansetron HCl 4 mg 02/27/25 21:45 Ondansetron Inj 2 Mg/Ml Inj 2 Ml IV 03/29/25 21:44 Q6HR PRN NAUSEA OR VOMITING Tamsulosin HCl 0.4 mg 02/28/25 11:15 02/28/25 11:51 Tamsulosin Hcl 0.4 Mg Capsule PO 03/30/25 11:14 0.4 mg QDAY ALECIA Administration Plan The patient is a [age]-year-old female with significant past medical history of essential hypertension, diabetes mellitus type 2, hyperlipidemia presented to ED with chief complaint of burning micturition for 4 days. Her symptoms were associated with right lower abdominal pain and generalized weakness for past 2 days. She also reported severe chills, and subjective fever, associated with drenching. The patient is being managed for severe sepsis secondary to right pyelonephritis. #Severe sepsis secondary to UTI #Complicated pyelonephritis given sepsis & DM #Nephrolithiasis #Renal Calculi 3 mm Patient presented with right lower abdominal pain, burning micturition and generalized weakness. Her symptoms were associated with severe chills, subjective fever and drenching. Met 3/4 SIRS criteria with pulse 115, white count 18.2, temperature meeting up to 102.9, and initially endorgan failure as altered mental status with lactic acid of 2.6.-->Fevers, Flank Pain & Costovertebral tenderness Diagnostics: Pro-Crow 71.29, UA revealed turbid urine, protein 2+, glucose 4+, ketones 1+, blood 1+, leukocyte esterase positive, WBC 236, RBC 13 Abdomen/Pelvis CT: 3 mm right renal calculus. Mild right hydronephrosis no ureteral calculi SOFA 2 Plan: - Continue on ceftriaxone IV 1 g daily -Pain management: Tylenol, Hilton, Dilaudid -Strain urine - Urine and blood culture sent - Daily a.m. labs for CBC, CMP and electrolytes - Pain management with p.o. Hilton and IV hydromorphone as needed - Continue to monitor closely #Hyperglycemia, improved #Diabetes mellitus type 2, non insulin dependent #HLD Patient presented with blood sugar of 441 and altered mental status A1c 8.6 - Started on sliding scale insulin lispro ACHS and Lantus 7 units daily -Resume statin AM - Daily a.m. labs for blood sugar #Hypertension After medication reconcillation, Atenolol and Lisinopril confirmed Plan -given MOOKIE=hold Lisinopril -Resume atenolol AM #MOOKIE Prerenal secondary to dehydration and poor oral intake in the setting of sepsis secondary to right pyelonephritis DDX: less likely secondary to obstructive given renal stone <10 mm Plan: - Avoid nephrotoxic drugs - Renally dose medications - Daily a.m. labs for CMP and electrolytes #Severe hypophosphatemia, imrpvoed Presented with phosphorus of 1.1 Likely secondary to sepsis - Ordered 30 mmol of potassium phosphate - Continue to monitor phosphate level and replete as needed #Mild hyperbilirubinemia #Mild transaminitis Likely secondary to severe sepsis Presented with total bilirubin of 1.5 and AST 41, but patient did not had any right upper quadrant abdominal pain and White sign was negative - Continue to treat underlying sepsis - Continue to monitor daily a.m. labs for CMP #Mild hypovolemic hypoosmolar hyponatremia Likely in the setting of decreased p.o. intake further complicated by severe sepsis secondary to right pyelonephritis Presented with sodium 132 and chloride 96 -Patient received 30 cc/kg bolus IV normal saline in the ED - Continue to monitor CMP in the morning Health maintenance: Dispo: Patient admitted to telemetry unit for further management of severe sepsis secondary to right pyelonephritis Diet: Carb consistent diet DVT prophylaxis: Subcu heparin CODE STATUS: Full code - The patient's plan was discussed with attending Dr. Barrett and senior residents Michelle Marquis MD PGY1 Internal Medicine Attending Provider Attestation/Addendum I have discussed and was present for the essential components of the history, physical examination, diagnosis, and treatment plan with the resident. I agree with the patient's care as documented by the resident and amended herein by me. Ramsey Barrett DO. Patient seen and evaluated this AM. Vital signs stable, patient afebrile overnight, WBC 18, initial Pro-Crow also elevated, A1c drawn 8.6, creatinine 1.4. Urine culture demonstrating GNR, will give a fluid bolus today, continue ceftriaxone until speciation and continue to monitor closely. The patient has no subjective complaints, minimal pain at this time of bedside visit. Although this document has been carefully reviewed, there may still be some phonetic and other typographical errors. These errors are purely grammatical due to imperfections in the software program and should not be construed in any way to compromise the substance of the patient's medical care during this visit.
[2025-02-28] MEDS: MIDODRINE 5 MG TABLET PO (17:17)
--- NOTE | 2025-02-28 19:27 | EDNOTE_ITS ---
ED General RME/HPI General Chief complaint: Fever Stated complaint: FEVER, GENERAL WEAKNESS Time Seen by Provider: 02/27/25 17:12 Arrival date/time: 02/27/25 16:59 60-year-old female with a past medical history of diabetes, hypertension, and hyperlipidemia presents to the emergency department with a complaint of generalized weakness, fever, and right flank pain. She has had generalized fatigue and malaise as well as some nausea but no vomiting or diarrhea. She denies any upper respiratory complaints or complaints. Mode of arrival: EMS Limitations: language barrier ([employer] utilized) RME / HPI RME / HPI narrative: Dr. Mcwilliams?s Main ED Evaluation: Related Data Home Medications ?Medication ?Instructions ?Recorded ?Confirmed lisinopril 20 mg tablet 20 mg PO QDAY #0 tabs 02/28/25 atenolol 25 mg tablet 25 mg PO QDAY 02/28/2502/28 glimepiride 2 mg tablet 2 mg PO BID 02/28/25 5 simvastatin 20 mg tablet 20 mg PO HS 02/28/25 5 Allergies Allergy/AdvReac Type Severity Reaction Status Date / Time No Known Allergies Allergy Unverified 02/28/25 09:12 Review of Systems Review of Systems Systems Reviewed: All systems reviewed, normal except as documented Constitutional Constitutional: Reports fatigue, Reports fever(s), Denies headache(s), Reports malaise and Reports weakness ENT Ears, Nose, Mouth, and Throat: Denies headache(s) Cardiovascular Cardiovascular: Denies chest pain, Denies dyspnea, Denies dyspnea on exertion and Denies lightheadedness Respiratory Respiratory: Denies chest congestion, Denies cough, Denies dyspnea and Denies dyspnea on exertion Gastrointestinal Gastrointestinal: Denies abdominal pain, Denies constipation, Denies diarrhea, Reports nausea and Denies vomiting Genitourinary Genitourinary: Reports as per HPI, Denies dysuria and Reports flank pain (RIGHT SIDED FLANK PAIN) Musculoskeletal Musculoskeletal: Denies back pain, Denies numbness and Denies tingling Neurologic Neurologic: Denies localized weakness, Denies headache(s), Denies numbness, Denies tingling and Reports weakness Endocrine Endocrine: Reports fatigue ED Exam General Limitations: Present language barrier ([employer] utilized) Course Orders Category Date Time Status Bedside Blood Glucose STAT Care 02/27/25 17:15 Completed Bedside COVID-19 Antigen Test NOW Care 02/28/25 00:23 Completed [employer] Q4H START 00 Care 02/27/25 21:46 Active Continuous Pulse Oximetry STAT Care 02/27/25 21:46 Completed EKG (ED ONLY) *Do not use* NOW Care 02/27/25 17:12 Completed Insert IV NOW Care 02/27/25 21:46 Active NPO STAT Care 02/27/25 21:46 Completed Orthostatic Vitals X1 Care 02/27/25 17:12 Completed Strict Intake and Output Routine Care 02/27/25 21:[address] abdomen pelvis wo con Stat Exams 02/28/25 01:57 Completed EKG (ED Only) Stat Exams 02/27/25 17:12 Ordered B-Type Natriuretic Peptide Stat Lab 02/27/25 21:44 Completed Beta Hydroxybutyrate Stat Lab 02/27/25 17:56 Completed Blood Culture (Lab) Stat Lab 02/27/25 22:15 Received CBC Stat Lab 02/27/25 17:56 Completed Comprehensive Metabolic Panel Stat Lab 02/27/25 17:56 Completed Glycohemoglobin w (eAG) Stat Lab 02/27/25 17:56 Completed LDH (Lactate Dehydrogenase) Stat Lab 02/27/25 21:44 Completed Lactate (Lactic Acid) Stat Lab 02/27/25 17:56 Completed Lactic Acid, 3 HR Stat Lab 02/27/25 21:44 Completed Magnesium Stat Lab 02/27/25 21:44 Completed Partial Thromboplastin Time Stat Lab 02/27/25 17:56 Completed Phosphorous Stat Lab 02/27/25 21:44 Completed Procalcitonin Stat Lab 02/27/25 21:44 Completed Prothrombin Time with INR Stat Lab 02/27/25 17:56 Completed Troponin I Stat Lab 02/27/25 17:56 Completed Urinalysis Stat Lab 02/27/25 19:23 Completed Urine Culture Stat Lab 02/27/25 19:23 Results VBG [Venous Blood Gas] Stat Lab 02/27/25 17:56 Completed Acetaminophen Ivpb [Ofirmev Inj] Med 02/28/25 04:39 Discontinued 1,000 mg in 100 ml IV Q6HR Acetaminophen Supp [Tylenol Supp] Med 02/27/25 21:45 Active 650 mg AL Q8HR PRN HYDROmorphone INJ [Dilaudid Inj] Med 02/28/25 06:00 Discontinued 0.5 mg IVP Q30MIN PRN Ondansetron Inj [Zofran Inj] Med 02/27/25 21:45 Active 4 mg IV Q6HR PRN Sodium Chloride 0.9% 1000 ml [Ns] 1,000 ml Med 02/28/25 01:59 Discontinued IV 999 mls/hr Sodium Chloride 0.9% 1000 ml [Ns] 1,503 ml Med 02/27/25 21:45 Discontinued IV 1,503 mls/hr cefTRIAXone/D5w 1gm IV premix [Rocephin/D5w 1gm IV Med 02/27/25 21:45 Discontinued premix] 1 gm in 50 ml IV X1 Oxygen Delivery NOW RT 02/27/25 21:46 Active Vital Signs Vital signs: Vital Signs Temperature 99.8 F 02/27/25 17:23 Pulse Rate 115 H 02/27/25 17:23 Respiratory Rate 16 02/27/25 17:23 Blood Pressure 114/63 02/27/25 17:23 Pulse Oximetry (%) 95 02/27/25 17:23 Oxygen Delivery Method Room Air 02/27/25 17:23 MDM Medications Medication administrations:: Medication Administration History Acetaminophen (Acetaminophen Supp 650 Mg Supp) 650 mg AL Q8HR PRN PRN Reason: Fever > 100.4 Stop: 03/29/25 21:44 Acetaminophen (Acetaminophen 325 Mg Tablet) 650 mg PO Q8HR PRN PRN Reason: FEVER >101 OR PAIN 1-3 Stop: 03/30/25 17:03 Hydrocodone Bitart/Acetaminophen (Hydrocodone/Apap 5/325 Tablet) 1 tab PO Q6HR PRN PRN Reason: PAIN SCALE 4-6 (Moderate Stop: 03/05/25 05:57 Dextrose (Dextrose 50%-Water Inj 50 Ml Syringe) 25 ml IV Q15MIN PRN PRN Reason: BG 50-70 responsive npo pt Stop: 03/30/25 06:17 Dextrose (Dextrose 50%-Water Inj 50 Ml Syringe) 50 ml IV Q15MIN PRN PRN Reason: BG <50 OR BG <70 & pt unresponsive Stop: 03/30/25 06:17 Glucagon (Glucagon Inj 1 Mg Vial) 1 mg IM Q15MIN PRN PRN Reason: BG <70, and no IV access Heparin Sodium (Porcine) (Heparin Sod Inj 5000 Unit/Ml Vial) 5,000 unit SC Q8HR [facility] Stop: 03/14/25 05:59 Last Admin: 02/28/25 14:34 Dose: Not Given Documented By: TD Non-Admin Reason: Patient Refused Admin: 02/28/25 07:20 Dose: Not Given Documented By: MIREILLE Non-Admin Reason: Contraindicated Hydromorphone HCl (Hydromorphone Inj 2 Mg/Ml Vial) 0.25 mg IVP Q4HR PRN PRN Reason: Pain 7-10 Ceftriaxone Sodium/Dextrose (Rocephin/D5w 1gm Iv Premix) 1 gm in 50 mls @ 100 mls/hr IV QDAY [facility] Stop: 03/07/25 08:59 Last Admin: 02/28/25 08:54 Dose: 100 mls/hr Documented By: TD Insulin Glargine (Insulin Glargine (Lantus) 5 Unit/0.05 Ml (Per 5 Units)) 6 unit SC QDAY [facility] Stop: 03/30/25 08:59 Last Admin: 02/28/25 09:03 Dose: 6 unit Documented By: GEOVANNI Co-signed By: PENELOPE Insulin Human Lispro (Insulin Lispro (Admelog) 1 Unit/0.01 Ml Unit) 0 unit SC [facility]; Protocol Stop: 03/30/25 07:29 Last Admin: 02/28/25 17:18 Dose: 1 unit Documented By: GEOVANNI Co-signed By: NAHOMI Admin: 02/28/25 11:53 Dose: 1 unit Documented By: GEOVANNI Co-signed By: NAHOMI Admin: 02/28/25 07:36 Dose: 4 unit Documented By: MIREILLE Co-signed By: CARLOS Ondansetron HCl (Ondansetron Inj 2 Mg/Ml Inj 2 Ml) 4 mg IV Q6HR PRN PRN Reason: NAUSEA OR VOMITING Stop: 03/29/25 21:44 Tamsulosin HCl (Tamsulosin Hcl 0.4 Mg Capsule) 0.4 mg PO QDAY [facility] Stop: 03/30/25 11:14 Last Admin: 02/28/25 11:51 Dose: 0.4 mg Documented By: TD Discontinued Medications Hydromorphone HCl (Hydromorphone Inj 2 Mg/Ml Vial) 0.5 mg IVP Q30MIN PRN PRN Reason: PAIN Stop: 03/02/25 05:59 Ceftriaxone Sodium/Dextrose (Rocephin/D5w 1gm Iv Premix) 1 gm in 50 mls @ 100 mls/hr IV X1 ONE Stop: 02/27/25 22:14 Last Infusion: 02/28/25 00:05 Dose: Infused Documented By: Admin: 02/27/25 23:33 Dose: 100 mls/hr Documented By: CVL Sodium Chloride (Ns) 1,503 mls @ 1,503 mls/hr 30 ml/kg infuse over 60 min (1503 ml) IV .Q1H ONE Stop: 02/27/25 22:44 Last Infusion: 02/28/25 00:05 Dose: Infused Documented By: Admin: 02/27/25 22:27 Dose: 1,503 mls/hr Documented By: CVL Sodium Chloride (Ns) 1,000 mls @ 999 mls/hr IV .Q1H1M ONE Stop: 02/28/25 02:59 Last Infusion: 02/28/25 03:46 Dose: Infused Documented By: Admin: 02/28/25 02:24 Dose: 999 mls/hr Documented By: CVL Acetaminophen (Ofirmev Inj) 1,000 mg in 100 mls @ 250 mls/hr IV Q6HR [facility] Stop: 03/01/25 00:23 Last Admin: 02/28/25 11:50 Dose: 250 mls/hr Documented By: Infusion: 02/28/25 05:08 Dose: Infused Documented By: Admin: 02/28/25 04:50 Dose: 250 mls/hr Documented By: CVL Potassium Phosphate (Pot Phos 15 Mmol In Ns 250 Ml) 15 mmol in 250 mls @ 62.5 mls/hr IV Q4HR [facility] Stop: 02/28/25 13:59 Last Admin: 02/28/25 11:51 Dose: 62.5 mls/hr Documented By: Infusion: 02/28/25 11:51 Dose: Infused Documented By: Admin: 02/28/25 07:54 Dose: 62.5 mls/hr Documented By: MIREILLE Magnesium Sulfate (Magnesium Sulfate Ivpb) 2 gm in 50 mls @ 25 mls/hr IV X1 ONE Stop: 02/28/25 11:16 Last Admin: 02/28/25 10:09 Dose: 25 mls/hr Documented By: TD Sodium Chloride (Ns) 1,000 mls @ 999 mls/hr IV .Q1H1M ONE Stop: 02/28/25 12:12 Last Admin: 02/28/25 11:34 Dose: 999 mls/hr Documented By: TD Midodrine (Midodrine 5 Mg Tablet) 5 mg PO X1 ONE Stop: 02/28/25 16:58 Last Admin: 02/28/25 17:17 Dose: 5 mg Documented By: TD Medical Decision Making Lab Data 02/28/25 09:46 02/28/25 11:40 Labs: Lab Results 02/27/25 02/27/25 02/27/25 Range/Units 17:56 19:23 21:44 WBC 18.2 H (3.6-11.0) Thou/mm3 RBC 4.45 (4.00-5.20) Miln/mm3 Hgb 13.8 (12.0-16.0) g/dL Hct 38.8 (36.0-46.0) % MCV 87 (80-100) fL MCH 31.0 (25.0-35.0) pg MCHC 35.6 (31.0-37.0) g/dl RDW Std Deviation 38.4 (36.4-46.3) fL Plt Count 164 (140-440) Thou/mm3 Neut % (Auto) 90 H (37-80) % Lymph % (Auto) 4 L (10-50) % Harris % (Auto) 4 (0-12) % Eos % (Auto) 0 (0-10) % Baso % (Auto) 0 (0-2.5) % Neut # (Auto) 16.3 H (1.8-7.7) Thou/mm3 Lymph # (Auto) 0.8 L (1.0-4.8) Thou/mm3 Harris # (Auto) 0.8 (0.0-0.8) Thou/mm3 Eos # (Auto) 0.1 (0.0-0.5) Thou/mm3 Baso # (Auto) 0.1 (0.0-0.2) Thou/mm3 Immature Gran # (Auto) 0.22 H (0.00-0.00) Thou/mm3 Absolute Nucleated RBC 0.00 (0.00-0.00) Thou/mm3 Immature Gran % 1 H (0-0) % Nucleated RBC % 0 (0) /100 WBC PT 12.0 (9.0-12.2) Seconds INR 1.1 (0.9-1.3) APTT 24.5 (22.0-36.0) Seconds VBG pH 7.48 (7.33-7.66) VBG pCO2 32 L (36-56) mmHg VBG pO2 42 (15-58) mmHg VBG O2 Sat (Aman) 84 L (96-97) % VBG Base Excess 1 (-3-3) Sodium 132 L (136-145) mMol/L Potassium 4.8 (3.4-5.1) mMol/L Chloride 96 L (98-107) mMol/L Carbon Dioxide 23.0 (20.0-31.0) mMol/L Anion Gap 13 (7-16) BUN 19 (9-23) mg/dL Creatinine 1.4 H (0.6-1.3) mg/dL Estim Creat Clear Calc 42.3 L (>60) mL/min eGFR 43 L (60 - ) See Note BUN/Creatinine Ratio 14 (12-20) Ratio Glucose 441 H* (74-106) mg/dL Estimated Ave Glu mg/dL 200 H (80-131) mg/dL Hemoglobin A1c 8.6 H (4.8-6.0) % Hgb Calculated Osmolality 285 (275-295) Lactic Acid 2.6 H 1.6 (0.4-2.0) mMol/L Calcium 9.8 (8.3-10.6) mg/dL Corrected Calcium 9.8 (8.5-10.1) mg/dL Phosphorus 1.1 L (2.4-5.1) mg/dL Magnesium 1.7 (1.6-2.6) mg/dL Total Bilirubin 1.5 H (0.3-1.2) mg/dL AST 41 H (0-34) U/L ALT 25 (10-49) U/L Alkaline Phosphatase 109 (46-116) U/L Lactate Dehydrogenase 232 (120-246) U/L Troponin I 0.024 (0.0-0.045) ng/mL B-Natriuretic Peptide 163 H (0-100) pg/mL Total Protein 7.5 (5.7-8.2) gm/dL Albumin 4.4 (3.4-4.8) gm/dL Globulin 3.1 (2.3-3.5) gm/dL Albumin/Globulin Ratio 1.4 (1.2-2.2) Beta-Hydroxybutyrate/Acetoacetate 0.4 (<0.6) mmol/L Procalcitonin 71.29 H (0.0-0.49) ng/ml Ur Collection Type Clean Catch Urine Color Lt-Yellow (Lt Yel-Yel) Urine Clarity Turbid A (Clear/Hazy) Urine pH 6.5 (5.0-7.0) Ur Specific Alice 1.024 (1.001-1.035) Urine Protein 2+ A (Neg - Trace) Urine Glucose (UA) 4+ A (Negative) Urine Ketones 1+ A (Negative) Urine Blood 1+ A (Negative) Urine Nitrite Negative (Negative) Urine Bilirubin Negative (Negative) Urine Urobilinogen (Auto) Negative (0.0-1.0) mg/dL Ur Leukocyte Esterase Positive (Negative) Urine RBC 13 H (0-3) /hpf Urine WBC 236 H (0-5) /hpf Ur Squamous Epith Cells 1 (0-5) /hpf Urine Bacteria None (None) Discharge Plan Plan Patient Disposition: Admit Acute Care w/in Hospital Disposition Comment: Stable Problem List Clinical Impression: Sepsis, Pyelonephritis, Hyperglycemia without ketosis 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 MCWILLIAMS
[2025-02-28] MEDS: HEPARIN SOD INJ 5000 UNIT/ML VIAL SC (21:04)
[2025-03-01] VITALS (10 sets, daily range): BP systolic 107–141; BP diastolic 61–74; PULSE 75–92; RESP 16–18; TEMP 36–36.5; O2SAT 97–99
[2025-03-01] MEDS: HYDROcodone/APAP 5/325 TABLET 1 TAB PO ×3 (03:36→18:18)
[2025-03-01 05:04] LABS: Basophils # (Auto) 0.1 Thou/mm3 (0.0-0.2); Basophils % (Auto) 0 % (0-2.5); Eosinophils % (Auto) 0 % (0-10); Hematocrit 30.2 % (36.0-46.0); Hemoglobin 10.4 g/dL (12.0-16.0); Immature Granulocytes % (Auto) 1 % (0-0); Immature Granulocytes Auto 0.18 Thou/mm3 (0.00-0.00); Lymphocytes # (Auto) 2.4 Thou/mm3 (1.0-4.8); Lymphocytes % (Auto) 12 % (10-50); Mean Corpuscular HGB Conc 34.4 g/dl (31.0-37.0); Mean Corpuscular Volume 90 fL (80-100); Monocytes # (Auto) 1.1 Thou/mm3 (0.0-0.8); Monocytes % (Auto) 5 % (0-12); Neutrophils # (Auto) 15.8 Thou/mm3 (1.8-7.7); Neutrophils % (Auto) 81 % (37-80); Nucleated Red Blood Cell % 0 /100 WBC (0); Platelet Count 125 Thou/mm3 (140-440); RDW Standard Deviation 40.4 fL (36.4-46.3); Red Blood Count 3.36 Miln/mm3 (4.00-5.20); White Blood Count 19.5 Thou/mm3 (3.6-11.0)
[2025-03-01] MEDS: HEPARIN SOD INJ 5000 UNIT/ML VIAL SC ×3 (05:10→21:14)
[2025-03-01 05:27] LABS: Alanine Aminotransferase 18 U/L (10-49); Albumin, Serum 3.3 gm/dL (3.4-4.8); Albumin/Globulin Ratio 1.4 (1.2-2.2); Alkaline Phosphatase 81 U/L (46-116); Anion Gap 12 (7-16); Aspartate Amino Transferase 21 U/L (0-34); BUN/Creatinine Ratio 13 Ratio (12-20); Bilirubin,Total 0.5 mg/dL (0.3-1.2); Blood Urea Nitrogen 12 mg/dL (9-23); Calcium 7.7 mg/dL (8.3-10.6); Calcium (Corrected) 8.3 mg/dL (8.5-10.1); Carbon Dioxide 20.2 mMol/L (20.0-31.0); Cardiac Risk Estimate 4.9 RATIO (3.7-5.6); Chloride 107 mMol/L (98-107); Cholesterol 112 mg/dL (132-200); Creatinine (Component) 0.9 mg/dL (0.6-1.3); Estimated Creatinine Clearance 68.2 mL/min (>60); Globulin 2.3 gm/dL (2.3-3.5); Glucose 99 mg/dL (74-106); HDL Cholesterol 23 mg/dL (40-60); LDL Cholesterol,Calculated 43 mg/dL (0-130); Magnesium 2.1 mg/dL (1.6-2.6); Osmolality,Calculated 277 (275-295); Phosphorous 1.5 mg/dL (2.4-5.1); Potassium 3.8 mMol/L (3.4-5.1); Sodium 139 mMol/L (136-145); Thyroid Stimulating Hormone 2.49 uIU/mL (0.55-4.78); Total Protein 5.6 gm/dL (5.7-8.2); Triglycerides 229 mg/dL (30-150); eGFR > 60 See Note
[2025-03-01] MEDS: TAMSULOSIN HCL 0.4 MG CAPSULE PO (09:20)
[2025-03-01] MEDS: cefTRIAXone/D5w 1gm IV premix 1 GM/50 ML BAG IV (09:20)
[2025-03-01] MEDS: INSULIN GLARGINE (Lantus) 5 UNIT/0.05 ML (PER 5 UNITS) 6 UNIT SC (09:22)
[2025-03-01] MEDS: NAPH,KPH MBDB 1 PACKET (1.5 GM) PO ×2 (09:50→21:10)
[2025-03-01] MEDS: SODIUM CHLORIDE 0.9% 1000 ML 1,000 ML 999 ML IV (12:05)
--- NOTE | 2025-03-01 12:15 | PD.RESPRO ---
Documentation for date of: 03/01/25 Subjective Subjective Interval history: No overnight events. No pyrexia reported overnight. Patient reported nausea but not vomiting. Continued pain with urination and pressure. Flank and costoverbetral angle tenderness. No stone noted in strainer. Bolus X 1 Electrolytes replaces w/ neutra pack. Exam Vital Signs Temp Pulse Resp BP Pulse Ox O2 Del Method 97.2 F 77 18 109/62 97 Room Air 03/01/25 07:53 03/01/25 07:53 03/01/25 07:53 03/01/25 07:53 03/01/25 07:53 03/01/25 07:53 Narrative Exam General Appearance: Alert & Oriented X3, well-nourished male who is lying in bed in mild discomfort HEENT: Skull symmetrical and atraumatic. Conjunctivae pin and moist. Pupils equal, round, reactive to light and accommodation (PERRL). External ear without lesion or discharge. Straight, nares patient, mucosa pink, no discharge. No thyroid nodule appreciated. No cervical lymphadenopathy. Cardio: Normal Rate and Rhythm with S1 and S2 heart sounds. No murmurs or extra heart sounds auscultated. No bruits on carotid auscultation. No peripheral edema or cyanosis. Lungs: Symmetric with good expansion. Chest and back non-tender. Breath sounds vesicular without crackles, wheezing or rhonchi Abdomen: Non-tender, Non-distended, Normal Reactive Bowel Sounds. Mild tenderness at right flank Neuro: Alert, cooperative, oriented to person, place, and time. Speech clear. CN grossly intact. Upper motor strength 5/5 and Lower motor strength 5/5. Sensation intact. Objective Labs 03/01/25 04:38 03/01/25 04:38 Labs: Laboratory Results - last 24 hr 02/28/25 03/01/25 11:40 04:38 WBC 19.5 H RBC 3.36 L Hgb 10.4 L Hct 30.2 L MCV 90 MCH 31.0 MCHC 34.4 RDW Std Deviation 40.4 Plt Count 125 L Neut % (Auto) 81 H Lymph % (Auto) 12 [place] % (Auto) 5 Eos % (Auto) 0 Baso % (Auto) 0 Neut # (Auto) 15.8 H Lymph # (Auto) 2.4 [place] # (Auto) 1.1 H Eos # (Auto) 0.0 Baso # (Auto) 0.1 Immature Gran # (Auto) 0.18 H Absolute Nucleated RBC 0.00 Immature Gran % 1 H Nucleated RBC % 0 Sodium 139 139 Potassium 3.4 3.8 Chloride 105 107 Carbon Dioxide 20.9 20.2 Anion Gap 13 12 BUN 23 12 Creatinine 1.3 0.9 Estim Creat Clear Calc 47.2 L 68.2 eGFR 47 L > 60 BUN/Creatinine Ratio 18 13 Glucose 151 H 99 D Calculated Osmolality 284 277 Calcium 7.8 L 7.7 L Corrected Calcium 8.3 L 8.3 L Phosphorus 1.6 L 1.5 L Magnesium 2.1 Total Bilirubin 0.5 AST 21 ALT 18 Alkaline Phosphatase 81 D Total Protein 5.6 L Albumin 3.4 3.3 L Globulin 2.3 Albumin/Globulin Ratio 1.4 Triglycerides 229 H Cholesterol 112 L LDL Cholesterol, Calc 43 HDL Cholesterol 23 L Cholesterol/HDL Ratio 4.9 TSH 2.49 ABG Interpretation ABG results: 02/27/25 17:56 VBG pH 7.48 VBG pCO2 32 L VBG pO2 42 VBG Base Excess 1 Quality Measures Quality Measures VTE prophylaxis Assessment & Plan Assessment Current Active Medications: Generic Name Dose Route Start Last Admin Trade Name Freq PRN Reason Stop Dose Admin Acetaminophen 650 mg 02/27/25 21:45 Acetaminophen Supp 650 Mg Supp UT 03/29/25 21:44 Q8HR PRN Fever > 100.4 Acetaminophen 650 mg 02/28/25 17:04 Acetaminophen 325 Mg Tablet PO 03/30/25 17:03 Q8HR PRN FEVER >101 OR PAIN 1-3 Hydrocodone Bitart/Acetaminophen 1 tab 02/28/25 05:58 03/01/25 09:50 Hydrocodone/Apap 5/325 Tablet PO 03/05/25 05:57 1 tab Q6HR PRN Administration PAIN SCALE 4-6 (Moderate Atorvastatin Calcium 20 mg 03/01/25 21:00 Atorvastatin Calcium 20 Mg Tablet PO 03/31/25 20:59 HS [facility] Dextrose 25 ml 02/28/25 06:18 Dextrose 50%-Water Inj 50 Ml Syringe IV 03/30/25 06:17 Q15MIN PRN BG 50-70 responsive npo pt Dextrose 50 ml 02/28/25 06:18 Dextrose 50%-Water Inj 50 Ml Syringe IV 03/30/25 06:17 Q15MIN PRN BG <50 OR BG <70 & pt unresponsive Glucagon 1 mg 02/28/25 06:18 Glucagon Inj 1 Mg Vial IM Q15MIN PRN BG <70, and no IV access Heparin Sodium (Porcine) 5,000 unit 02/28/25 06:00 03/01/25 05:10 Heparin Sod Inj 5000 Unit/Ml Vial SC 03/14/25 05:59 5,000 unit Q8HR [facility] Administration Hydromorphone HCl 0.25 mg 02/28/25 17:03 Hydromorphone Inj 2 Mg/Ml Vial IVP Q4HR PRN Pain 7-10 Ceftriaxone Sodium/Dextrose 1 gm in 50 mls @ 100 mls/hr 02/28/25 09:00 03/01/25 09:20 Rocephin/D5w 1gm Iv Premix IV 03/07/25 08:59 100 mls/hr QDAY [facility] Administration Insulin Glargine 6 unit 02/28/25 09:00 03/01/25 09:22 Insulin Glargine (Lantus) 5 Unit/0.05 Ml (Per 5 Units) SC 03/30/25 08:59 6 unit QDAY [facility] Administration Insulin Human Lispro 0 unit 02/28/25 07:30 03/01/25 07:43 Insulin Lispro (Admelog) 1 Unit/0.01 Ml Unit SC 03/30/25 07:29 Not Given [facility] Protocol Ondansetron HCl 4 mg 02/27/25 21:45 Ondansetron Inj 2 Mg/Ml Inj 2 Ml IV 03/29/25 21:44 Q6HR PRN NAUSEA OR VOMITING Tamsulosin HCl 0.4 mg 02/28/25 11:15 03/01/25 09:20 Tamsulosin Hcl 0.4 Mg Capsule PO 03/30/25 11:14 0.4 mg QDAY [facility] Administration Plan The patient is a [age]-year-old female with significant past medical history of essential hypertension, diabetes mellitus type 2, hyperlipidemia presented to ED with chief complaint of burning micturition for 4 days. Her symptoms were associated with right lower abdominal pain and generalized weakness for past 2 days. She also reported severe chills, and subjective fever, associated with drenching. The patient is being managed for severe sepsis secondary to right pyelonephritis. #Complicated pyelonephritis given sepsis & DM #Nephrolithiasis #Renal Calculi 3 mm #Mild Hydronephrosis Patient presented with right lower abdominal pain, burning micturition and generalized weakness. Her symptoms were associated with severe chills, subjective fever and drenching. Met 3/4 SIRS criteria with pulse 115, white count 18.2, temperature meeting up to 102.9, and initially endorgan failure as altered mental status with lactic acid of 2.6.-->Fevers, Flank Pain & Costovertebral tenderness Diagnostics: Pro-Crow 71.29, UA revealed turbid urine, protein 2+, glucose 4+, ketones 1+, blood 1+, leukocyte esterase positive, WBC 236, RBC 13 Abdomen/Pelvis CT: 3 mm right renal calculus. Mild right hydronephrosis no ureteral calculi Plan: - Continue on ceftriaxone IV 1 g daily -1 bolus 03/01/2025 -Pain management: Tylenol, [employer], Dilaudid -Strain urine - Urine and blood culture sent - Daily a.m. labs for CBC, CMP and electrolytes - Pain management with p.o. [employer] and IV hydromorphone as needed - Continue to monitor closely #Hyperglycemia, improved #Diabetes mellitus type 2, non insulin dependent #HLD Patient presented with blood sugar of 441 and altered mental status A1c 8.6 - Started on sliding scale insulin lispro ACHS and Lantus 7 units daily -Atorvastatin 20 mg HS - Daily a.m. labs for blood sugar #Hypertension After medication reconcillation, Atenolol and Lisinopril confirmed Plan -given MOOKIE=hold Lisinopril -Resume atenolol AM #Severe hypophosphatemia, improving secondary to MOOKIE Plan Neutra-Pack AM & Second one in evening #Mild hyperbilirubinemia #Mild transaminitis Likely secondary to severe sepsis Presented with total bilirubin of 1.5 and AST 41, but patient did not had any right upper quadrant abdominal pain and White sign was negative - Continue to treat underlying sepsis - Continue to monitor daily a.m. labs for CMP #Mild hypovolemic hypoosmolar hyponatremia Likely in the setting of decreased p.o. intake further complicated by severe sepsis secondary to right pyelonephritis Presented with sodium 132 and chloride 96 -Patient received 30 cc/kg bolus IV normal saline in the ED - Continue to monitor CMP in the morning #MOOKIE, resolved #Severe sepsis secondary to UTI, resolved Health maintenance: Dispo: Patient admitted to telemetry unit for further management of leukocytosis Diet: Carb consistent diet DVT prophylaxis: Subcu heparin CODE STATUS: Full code - The patient's plan was discussed with attending Dr. Nena Marquis MD PGY1 Internal Medicine Attending Provider Attestation/Addendum I have discussed and was present for the essential components of the history, physical examination, diagnosis, and treatment plan with the resident. I agree with the patient's care as documented by the resident and amended herein by me. Ramsey Barrett DO. Patient seen and evaluated this AM. No acute events overnight, patient does have complaints of mild lower abdominal pain however has not requested any pain medications. Slight uptrend in WBC today to 19, we will keep patient another day on ceftriaxone which will treat the pansensitive E. coli demonstrated on urine culture. Will continue to monitor closely. Although this document has been carefully reviewed, there may still be some phonetic and other typographical errors. These errors are purely grammatical due to imperfections in the software program and should not be construed in any way to compromise the substance of the patient's medical care during this visit.
[2025-03-01] MEDS: INSULIN LISPRO (AdmeLOG) 1 UNIT/0.01 ML UNIT SC ×3 (12:59→21:13)
--- NOTE | 2025-03-01 15:51 | PC.SS ---
This is 60-year-old, , female who presented to the ED due to suffering from abdominal pain. Patient appeared alert and oriented to self, place and situation. Patient was pleasant, her mood and behavior were ordinary. Patient verified her address as [address] [place] [address]. Patient is independent with all ADLs, no DME use. In case of an emergency, she selected her , Marcio as her emergency contact. Patient's PCP is EDINSON in [facility]. When medically clear, patient will return home, no transportation. Discharge plan: home, no transportation.
[2025-03-01] MEDS: ONDANSETRON INJ 2 MG/ML INJ 2 ML 4 MG IV (20:54)
[2025-03-01] MEDS: ATORVASTATIN CALCIUM 20 MG TABLET PO (21:12)
[2025-03-02] VITALS: BP 137/67; PULSE 85; RESP 18; TEMP 36.2; O2SAT 99
[2025-03-02 04:00] VITALS: BP 146/78; PULSE 97; RESP 18; TEMP 36.5; O2SAT 99
[2025-03-02 04:01] VITALS: PULSE 87
[2025-03-02 05:20] LABS: Basophils # (Auto) 0.1 Thou/mm3 (0.0-0.2); Basophils % (Auto) 0 % (0-2.5); Eosinophils % (Auto) 0 % (0-10); Hematocrit 30.6 % (36.0-46.0); Immature Granulocytes % (Auto) 1 % (0-0); Immature Granulocytes Auto 0.08 Thou/mm3 (0.00-0.00); Lymphocytes # (Auto) 1.9 Thou/mm3 (1.0-4.8); Lymphocytes % (Auto) 14 % (10-50); Mean Corpuscular HGB Conc 35.9 g/dl (31.0-37.0); Mean Corpuscular Hemoglobin 31.1 pg (25.0-35.0); Mean Corpuscular Volume 86 fL (80-100); Monocytes # (Auto) 0.8 Thou/mm3 (0.0-0.8); Monocytes % (Auto) 6 % (0-12); Neutrophils # (Auto) 10.9 Thou/mm3 (1.8-7.7); Neutrophils % (Auto) 79 % (37-80); Nucleated Red Blood Cell % 0 /100 WBC (0); Platelet Count 168 Thou/mm3 (140-440); RDW Standard Deviation 38.7 fL (36.4-46.3); Red Blood Count 3.54 Miln/mm3 (4.00-5.20); White Blood Count 13.7 Thou/mm3 (3.6-11.0)
[2025-03-02] MEDS: HEPARIN SOD INJ 5000 UNIT/ML VIAL SC (05:37)
[2025-03-02 06:03] LABS: Alanine Aminotransferase 14 U/L (10-49); Albumin, Serum 3.4 gm/dL (3.4-4.8); Albumin/Globulin Ratio 1.4 (1.2-2.2); Alkaline Phosphatase 92 U/L (46-116); Anion Gap 12 (7-16); Aspartate Amino Transferase 15 U/L (0-34); BUN/Creatinine Ratio 9 Ratio (12-20); Bilirubin,Total 0.4 mg/dL (0.3-1.2); Blood Urea Nitrogen 7 mg/dL (9-23); Calcium 8.2 mg/dL (8.3-10.6); Calcium (Corrected) 8.7 mg/dL (8.5-10.1); Carbon Dioxide 22.6 mMol/L (20.0-31.0); Chloride 104 mMol/L (98-107); Creatinine (Component) 0.8 mg/dL (0.6-1.3); Estimated Creatinine Clearance 78.8 mL/min (>60); Globulin 2.5 gm/dL (2.3-3.5); Glucose 144 mg/dL (74-106); Magnesium 1.9 mg/dL (1.6-2.6); Osmolality,Calculated 278 (275-295); Phosphorous 2.1 mg/dL (2.4-5.1); Potassium 3.7 mMol/L (3.4-5.1); Sodium 139 mMol/L (136-145); Total Protein 5.9 gm/dL (5.7-8.2); eGFR > 60 See Note
[2025-03-02] MEDS: INSULIN LISPRO (AdmeLOG) 1 UNIT/0.01 ML UNIT SC ×2 (07:47→12:03)
[2025-03-02] MEDS: NAPH,KPH MBDB 1 PACKET (1.5 GM) PO (07:48)
[2025-03-02] MEDS: ACETAMINOPHEN 325 MG TABLET 650 MG PO (07:54)
[2025-03-02 07:57] VITALS: BP 143/72; PULSE 85; RESP 18; TEMP 36.5; O2SAT 99
[2025-03-02 08:00] VITALS: PULSE 76
[2025-03-02] MEDS: cefTRIAXone/D5w 1gm IV premix 1 GM/50 ML BAG IV (08:46)
[2025-03-02] MEDS: INSULIN GLARGINE (Lantus) 5 UNIT/0.05 ML (PER 5 UNITS) 6 UNIT SC (08:46)
[2025-03-02] MEDS: TAMSULOSIN HCL 0.4 MG CAPSULE PO (08:46)
--- NOTE | 2025-03-02 11:48 | CHAP ---
Patient was visited by the Spiritual Care Volunteer from whom they received communion. (Volunteer was in the hospital from 11:05-11:48).
[2025-03-02 12:00] VITALS: BP 127/67; PULSE 71; PULSE 73; RESP 17; TEMP 36.4; O2SAT 99
--- NOTE | 2025-03-02 17:22 | ESDS_ITS ---
Planned Discharge Date 03/02/25 DS: Providers Provider Date of admission: 02/28/25 05:58 Primary care physician: Praveen Ramirez MD Admitting Provider: Valerio Tavarez MD Attending Provider on Admission: Basim Barrett DO Attending Provider on DC: Shaq Mabry MD Discharging Provider: Shaq Mabry MD DS: Diagnosis Problem List Completed Was Problem List Reviewed/Reconciled?: Yes Hospital Course Hospital Course Hospital course: The patient is a [age]-year-old female with significant past medical history of essential hypertension, diabetes mellitus type 2, hyperlipidemia presented to ED with chief complaint of burning micturition for 4 days. Her symptoms were associated with right lower abdominal pain and generalized weakness for past 2 days. She also reported severe chills, and subjective fever, associated with drenching. The patient was managed for severe sepsis secondary to right pyelonephritis. Started on IV antibiotics ceftriaxone, urine cultures resulted for E. coli, pansensitive. Was started on multimodal pain management. Symptoms improved, patient is stable for discharge on p.o. antibiotics and pain medications. The patient is stable, ambulatory, afebrile and tolerating Per oral medications at the time of discharge. The patient understood and agreed to the treatment plan. Follow up with Primary care physician with labs within 3-5 days of discharge. If symptoms persist or worsen, return to the Emergency Department. #Complicated pyelonephritis given sepsis & DM #Nephrolithiasis #Renal Calculi 3 mm #Mild Hydronephrosis Patient presented with right lower abdominal pain, burning micturition and generalized weakness. Her symptoms were associated with severe chills, subjective fever and drenching. Met 3/4 SIRS criteria with pulse 115, white count 18.2, temperature meeting up to 102.9, and initially endorgan failure as altered mental status with lactic acid of 2.6.-->Fevers, Flank Pain & Costovertebral tenderness Diagnostics: Pro-Crow 71.29, UA revealed turbid urine, protein 2+, glucose 4+, ketones 1+, blood 1+, leukocyte esterase positive, WBC 236, RBC 13 Abdomen/Pelvis CT: 3 mm right renal calculus. Mild right hydronephrosis no ureteral calculi Plan: - Continue on ceftriaxone IV 1 g daily -1 bolus 03/01/2025 -Pain management: Tylenol, Dwight, Dilaudid -Strain urine - Urine and blood culture sent - Daily a.m. labs for CBC, CMP and electrolytes - Pain management with p.o. Dwight and IV hydromorphone as needed - Continue to monitor closely #Hyperglycemia, improved #Diabetes mellitus type 2, non insulin dependent #HLD Patient presented with blood sugar of 441 and altered mental status A1c 8.6 - Started on sliding scale insulin lispro ACHS and Lantus 7 units daily -Atorvastatin 20 mg HS - Daily a.m. labs for blood sugar #Hypertension After medication reconcillation, Atenolol and Lisinopril confirmed Plan -given MOOKIE=hold Lisinopril -Resume atenolol AM #Severe hypophosphatemia, improving secondary to MOOKIE Plan Neutra-Pack AM & Second one in evening #Mild hyperbilirubinemia #Mild transaminitis Likely secondary to severe sepsis Presented with total bilirubin of 1.5 and AST 41, but patient did not had any right upper quadrant abdominal pain and White sign was negative - Continue to treat underlying sepsis - Continue to monitor daily a.m. labs for CMP #Mild hypovolemic hypoosmolar hyponatremia Likely in the setting of decreased p.o. intake further complicated by severe sepsis secondary to right pyelonephritis Presented with sodium 132 and chloride 96 -Patient received 30 cc/kg bolus IV normal saline in the ED - Continue to monitor CMP in the morning #MOOKIE, resolved #Severe sepsis secondary to UTI, resolved Plan of care discussed in attending Dr. Nena Mabry PGY2 Status at Discharge Overall status at discharge: patient is progressing back to baseline Time Spent with Patient Time attestation: Total time spent providing and/or coordinating discharge services: 30 min Exam Vital Signs Temp Pulse Resp BP Pulse Ox O2 Del Method 97.6 F 73 17 127/67 99 Room Air 03/02/25 12:00 03/02/25 12:00 03/02/25 12:00 03/02/25 12:00 03/02/25 12:03/02/25 12:00 Narrative Exam General Appearance: Alert & Oriented X3, well-nourished male who is lying in bed in no discomfort HEENT: Skull symmetrical and atraumatic. Conjunctivae pin and moist. Pupils equal, round, reactive to light and accommodation (PERRL). External ear without lesion or discharge. Straight, nares patient, mucosa pink, no discharge. No thyroid nodule appreciated. No cervical lymphadenopathy. Cardio: Normal Rate and Rhythm with S1 and S2 heart sounds. No murmurs or extra heart sounds auscultated. No bruits on carotid auscultation. No peripheral edema or cyanosis. Lungs: Symmetric with good expansion. Chest and back non-tender. Breath sounds vesicular without crackles, wheezing or rhonchi Abdomen: Non-tender, Non-distended, Normal Reactive Bowel Sounds. Mild tenderness at right flank Neuro: Alert, cooperative, oriented to person, place, and time. Speech clear. CN grossly intact. Upper motor strength 5/5 and Lower motor strength 5/5. Sensation intact. Discharge Plan Plan Patient Disposition: HOME (Self Care) Disposition Comment: Stable Care Plan Goals: Recommend to continue antibiotic ciprofloxacin for 5 more days for treatment of complicated urinary tract infection, prescribed ketorolac for pain and famotidine gastric ulcer prophylaxis, also prescribed Dwight 5/300 for breakthrough pain, to be taken if persistent severe pain despite ketorolac. Also prescribed tamsulosin for 10 more days to ease the passage of stone. Recommend using stainer every time you pee, to collect the stone. Recommend following up with your primary care physician to go over medications and urologist referral. In case of worsening symptoms, please return to the emergency room. Se recomienda continuar con el antibi?caridad ciprofloxacino agus 5 d?as m?s para el tratamiento de zelalem infecci?n urinaria complicada. Se prescribe ketorolaco para el dolor y profilaxis de ?lcera g?strica con famotidina. Tambi?n se prescribe Dwight 5/300 para el dolor irruptivo, que se debe marcial si el dolor intenso persiste a pesar del ketorolaco. Tambi?n se prescribe tamsulosina dur ante 10 d?as m?s para facilitar la expulsi?n del c?lculo. Se recomienda usar un dispositivo de tinci?n cada vez que orine para recolectar el c?lculo. Se recomienda consultar con amador m?dico de cabecera para revisar la medicaci?n y derivarlo a un ur?logo. En yamil de empeoramiento de los s?ntomas, acuda a urgencias. Prescriptions/Referrals Prescriptions/Med Rec: New tamsulosin 0.4 mg Capsule 0.4 mg PO QDAY 10 Days Qty: 10 0RF famotidine 20 mg tablet 20 mg PO QDAY Qty: 5 0RF ciprofloxacin HCl [Cipro] 500 mg tablet 500 mg PO BID Qty: 10 0RF hydrocodone-acetaminophen 5-300 mg tablet 1 tab PO Q8H MDD 3 doses PRN (Reason: pain) Qty: 6 0RF ketorolac 10 mg tablet 10 mg PO Q8H Qty: 14 0RF Rx Instructions: maximum total duration of 5 days from all oral, intranasal, or parenteral formulations Continued lisinopril 20 MG tablet 20 mg PO QDAY Qty: 0 glimepiride 2 mg tablet 2 mg PO BID atenolol 25 mg tablet 25 mg PO QDAY simvastatin 20 mg tablet 20 mg PO HS Referrals: Kendra Alcaraz MD [Physician] - Praveen Ramirez MD [Primary Care Provider] - Patient/Caregiver Discharge Instructions Education Materials: Kidney Infec Dc Print Language: Kosovan Stand Alone Forms: Debbie Award Info., Patient Portal Info Letter Discharge Order Discharge Orders: Discharge (Routine); Ordered 03/02/25 Ordered By: Shaq Mabry Quality Discharge Quality Measures VTE prophylaxis Attestestation MD Attestation I have discussed and was present for the essential components of the discharge history, physical examination, diagnosis, and discharge treatment plan with the resident. I agree with the patient's discharge care as documented by the resident and amended herein by me. Ramsey Barrett DO. The patient understood all discharge instructions, all questions were answered satisfactorily. The patient was instructed to return to the Emergency Department is symptoms worsened or persisted. Patient was stable, afebrile, tolerating p.o. intake and ambulatory at time of discharge home. Patient will be discharged with an additional 5 days of ciprofloxacin 500 mg twice daily. All questions were answered satisfactorily, patient's family was at bedside at time of discharge. Although this document has been carefully reviewed, there may still be some phonetic and other typographical errors. These errors are purely grammatical due to imperfections in the software program and should not be construed in any way to compromise the substance of the patient's medical care during this visit.
== END 2025-03-02 14:35 | disposition home or self-care (01) | DRG 720 ==
LOC: SERX 02-28 02:42 → SERHOLD 02-28 06:10 → S3SX 02-28 08:12
PROVIDERS: Physician Assistant; Student in an Organized Health Care Education/Training Program; Admitting Provider Student in an Organized Health Care Education/Training Program; Emergency Provider Emergency Medicine; PCP Family Medicine; Visit Provider Student in an Organized Health Care Education/Training Program
DX: A41.51 Sepsis due to Escherichia coli [E. coli] (principal); E86.0 Dehydration; E86.1 Hypovolemia; E87.1 Hypo-osmolality and hyponatremia; N13.6 Pyonephrosis; R65.20 Severe sepsis without septic shock; E11.65 Type 2 diabetes mellitus with hyperglycemia; E83.39 Other disorders of phosphorus metabolism; E80.6 Other disorders of bilirubin metabolism; N17.9 Acute kidney failure, unspecified; R74.01 Elevation of levels of liver transaminase levels; I10 Essential (primary) hypertension; E78.5 Hyperlipidemia, unspecified; N20.0 Calculus of kidney; Z79.899 Other long term (current) drug therapy; Z90.710 Acquired absence of both cervix and uterus
CPT/HCPCS: 36415; 74176; 80053; 80061; 80069; 81001; 82010; 82803; 83036; 83605; 83615; 83735; 83880; 84100; 84145; 84443; 84484; 85025; 85610; 85730; 87040; 87077; 87086; 87186; 87811; 93005; 93225; 96361; 96365; 96367; 96372; 99285; J0131; J0696; J1643; J1815; J2405; J3475; J7030; J7999; A9270

== ENCOUNTER 2025-03-04 10:58 | Emergency (ER) | payer MEDICAID, SELFPAY ==
[2025-03-04 11:21] VITALS: BP 157/73; PULSE 73; RESP 18; TEMP 36.9; O2SAT 100; BMI 28.9
[2025-03-04] MEDS: KETOROLAC INJ 60 MG/2 ML VIAL 30 MG IM (11:41)
[2025-03-04] MEDS: PROCHLORPERAZINE INJ 5 MG/ML VIAL 2 ML 10 MG IM (11:41)
[2025-03-04 11:44] LABS: Basophils # (Auto) 0.1 Thou/mm3 (0.0-0.2); Basophils % (Auto) 0 % (0-2.5); Eosinophils % (Auto) 0 % (0-10); Hemoglobin 11.3 g/dL (12.0-16.0); Immature Granulocytes % (Auto) 3 % (0-0); Immature Granulocytes Auto 0.32 Thou/mm3 (0.00-0.00); Lymphocytes # (Auto) 1.4 Thou/mm3 (1.0-4.8); Lymphocytes % (Auto) 11 % (10-50); Mean Corpuscular HGB Conc 36.5 g/dl (31.0-37.0); Mean Corpuscular Hemoglobin 31.3 pg (25.0-35.0); Mean Corpuscular Volume 86 fL (80-100); Monocytes # (Auto) 0.8 Thou/mm3 (0.0-0.8); Monocytes % (Auto) 6 % (0-12); Neutrophils # (Auto) 10.1 Thou/mm3 (1.8-7.7); Neutrophils % (Auto) 80 % (37-80); Nucleated Red Blood Cell % 0 /100 WBC (0); Platelet Count 217 Thou/mm3 (140-440); RDW Standard Deviation 37.4 fL (36.4-46.3); Red Blood Count 3.61 Miln/mm3 (4.00-5.20); White Blood Count 12.6 Thou/mm3 (3.6-11.0)
[2025-03-04 12:02] LABS: Alanine Aminotransferase 38 U/L (10-49); Albumin, Serum 3.6 gm/dL (3.4-4.8); Albumin/Globulin Ratio 1.4 (1.2-2.2); Alkaline Phosphatase 104 U/L (46-116); Anion Gap 6 (7-16); Aspartate Amino Transferase 59 U/L (0-34); BUN/Creatinine Ratio 10 Ratio (12-20); Bilirubin,Total 0.5 mg/dL (0.3-1.2); Blood Urea Nitrogen 8 mg/dL (9-23); Calcium 8.2 mg/dL (8.3-10.6); Calcium (Corrected) 8.5 mg/dL (8.5-10.1); Carbon Dioxide 24.7 mMol/L (20.0-31.0); Chloride 92 mMol/L (98-107); Creatinine (Component) 0.8 mg/dL (0.6-1.3); Estimated Creatinine Clearance 63.9 mL/min (>60); Globulin 2.6 gm/dL (2.3-3.5); Glucose 210 mg/dL (74-106); Lipase 33 U/L (12-53); Osmolality,Calculated 252 (275-295); Potassium 4.6 mMol/L (3.4-5.1); Sodium 123 mMol/L (136-145); Total Protein 6.2 gm/dL (5.7-8.2); eGFR > 60 See Note
[2025-03-04 12:22] LABS: Collection Type, Urine Clean Catch
[2025-03-04 12:32] LABS: Bilirubin,Urine Negative (Negative); Blood,Urine Negative (Negative); Clarity,Urine Clear (Clear/Hazy); Color,Urine Lt-Yellow (Lt Yel-Yel); Glucose, Urine 3+ (Negative); Ketones,Urine 1+ (Negative); Leukocyte Esterase,Urine Positive (Negative); Nitrite,Urine Negative (Negative); Protein,Urine Negative (Neg - Trace); RBC,Urine 1 /hpf (0-3); Specific Gravity,Urine 1.007 (1.001-1.035); Squamous Epithelial Cell,Urine 6 /hpf (0-5); Urobilinogen,Urine Negative mg/dL (0.0-1.0); WBC,Urine 9 /hpf (0-5)
--- NOTE | 2025-03-04 12:53 | EDNOTE_ITS ---
<Statement entered by Di Lockhart MD - 03/04/25 15:03> As co-signing physician, I was present and available for consult prn. I concur with the plan and care as documented by the midlevel provider. ED General RME/HPI General Chief complaint: Headache Stated complaint: HEADACHE X2 DAYS Time Seen by Provider: 03/04/25 11:28 Arrival date/time: 03/04/25 10:58 CC: Headache, loss of appetite HPI ongoing for 1 week left the patient was diagnosed with a UTI. Patient states she has intermittent nausea with an occasional vomiting. Denies chest pain shortness of breath. Ketorolac oral was given in a previous to prescription which patient states it is not work . Related Data Home Medications ?Medication ?Instructions ?Recorded ?Confirmed lisinopril 20 mg tablet 20 mg PO QDAY #0 tabs 02/28/25 atenolol 25 mg tablet 25 mg PO QDAY 02/28/2502/28 glimepiride 2 mg tablet 2 mg PO BID 02/28/25 5 simvastatin 20 mg tablet 20 mg PO HS 02/28/25 5 Previous Rx's ?Medication ?Instructions ?Recorded ciprofloxacin HCl 500 mg tablet 500 mg PO BID #10 tabs 03/02/25 (Cipro) famotidine 20 mg tablet 20 mg PO QDAY #5 tabs hydrocodone 5 mg-acetaminophen 300 1 tab PO Q8H PRN pa in #6 tabs 03/02/25 mg tablet ketorolac 10 mg tablet 10 mg PO Q8H #14 tabs tamsulosin 0.4 mg capsule 0.4 mg PO QDAY 10 days #10 c aps 03/02/25 diphenhydramine 12.5 1 tab PO BID #10 tabs mg-acetaminophen 325 mg tablet (Percogesic) Allergies Allergy/AdvReac Type Severity Reaction Status Date / Time No Known Allergies Allergy Verified 03/04/25 11:05 Review of Systems Review of Systems Narrative Review of Systems: GEN: No fever, no chills, no weight loss EYES: No discharge, no visual changes, no pain HEENT: No ear pain, no congestion, no sore throat PULM: No shortness of breath, no cough, no congestion CV: No chest pain, no dyspnea on exertion, no palpitations GI: No nausea, no vomiting, no diarrhea, no pain, no constipation : No frequency, no urgency, no dysuria MUSC/SKEL: No joint pain, no back pain SKIN: No rash PSYCH: No hallucinations, no depression HEME/LYMPH: No easy bleeding or bruising tendencies NEURO: No weakness, + headache Past Medical History Past Medical History NEUROLOGIC: Negative Neurological Disorders CARDIAC: Positive Cardiac Disorders, Hypercholesterolemia and Hypertension; Negative Congestive Heart Failure RESPIRATORY: Positive Bronchitis (2008); Negative Chronic Obstructive Pulmonary Disease (COPD) GASTROINTESTINAL: Positive Gastrointestinal Disorders (gastritis) GENITOURINARY: Negative Genitourinary Disorders or Renal Disease MUSCULOSKELETAL: Negative Musculoskeletal Disorders ENDOCRINE: Positive Endocrine Disorders and Diabetes Mellitus Type 2; Negative Diabetes Mellitus Type 1 HEMATOLOGIC: Negative Blood Disorders Social History SMOKING STATUS: Never smoker ED Exam Narrative Physical exam: [General; not in any acute distress Head normocephalic HEENT: Eyes pupils are PERRLA EOMs are intact mouth pink moist membranes all other subsystems of HEENT are within acceptable limits Neck is supple nontender Chest equal chest rise nontender to palpation Respiratory: Clear to auscultation no wheezes crackles or rubs CV: Rate rhythm is regular no murmurs rubs or clicks Abdomen is distended secondary to body habitus soft nontender no masses positive bowel sounds all 4 quadrants Back: No CVA tenderness no spinous process tenderness from cervical spine thoracic and lumbar spine Skin: Intact no petechiae rash induration ulceration or crepitus Extremities: Moving all extremity against resistance cap refill less than 2 seconds neurosensory intact Neuro: Awake alert oriented x3 Glascow coma 15 no focal deficits] Course Quality Measures none Orders Category Date Time Status CBC Stat Lab 03/04/25 11:38 Completed CMP [Comprehensive Metabolic Panel] Stat Lab 03/04/25 11:38 Completed Lipase Stat Lab 03/04/25 11:38 Completed Urinalysis Stat Lab 03/04/25 12:16 Completed Ketorolac Inj [Toradol Inj] Med 03/04/25 11:30 Discontinued 30 mg IM X1 ONE Prochlorperazine Inj [Compazine Inj] Med 03/04/25 11:30 Discontinued 10 mg IM X1 ONE Vital Signs Vital signs: Vital Signs Temperature 98.5 F 03/04/25 11:21 Pulse Rate 73 03/04/25 11:21 Respiratory Rate 18 03/04/25 11:21 Blood Pressure 157/73 H 03/04/25 11:21 Pulse Oximetry (%) 100 03/04/25 11:21 Oxygen Delivery Method Room Air 03/04/25 11:21 [facility] Patient data External records reviewed:: [facility] previous records Clinical information provided by:: patient and family Social determinants that could affect healthcare access:: none Patient has the following chronic illnesses:: Hypertension, discharged from this hospital 2 days ago for right pyelonephritis. How is presenting disease/condition affected by chronic disease/condition?: u neffected by Evaluation data The following diagnostics were reviewed and interpreted by me:: lab results Lab and/or radiology exams considered but not ordered:: CBC shows a leukocytosis of 12.6 H&H of the third 11.3 and 31.0 respectively. No thrombocytopenia Sodium is 123 chloride 92 gap of 6 BUN of 8 glucose of 210. No transaminitis or T. bili elevation. Urine shows 3+ glucose of 1+ protein 9 RBCs 6 squamous no bacteria. Interpretation Summary: Laboratory results show an improvement in her leukocytosis urine is significantly improved. Headache also states that she has improved headache after administration of the injections. At this time with patient will be discharged home with headache. Medications Medications considered but not ordered:: None none Medication administrations:: Medication Administration History Discontinued Medications Ketorolac Tromethamine (Ketorolac Inj 60 Mg/2 Ml Vial) 30 mg IM X1 ONE Stop: 03/04/25 11:31 Last Admin: 03/04/25 11:41 Dose: 30 mg Documented By: JOSE Prochlorperazine Edisylate (Prochlorperazine Inj 5 Mg/Ml Vial 2 Ml) 10 mg IM X1 ONE; Protocol Stop: 03/04/25 11:31 Last Admin: 03/04/25 11:41 Dose: 10 mg Documented By: JOSE None Consultations Consultation(s) initiated? (list below): No Diagnosis Differential Diagnosis ED Complaint MDM: Headache electrolyte imbalances recurrence of UTI Most likely diagnosis given after review of the tests above:: Headache Admission Indicated Admission indicated?: not indicated Explain why admission is indicated or not indicated:: Will for discharge Admission Request Was there a request for admission?: No Disposition Plan Disposition Plan: Discharge Discharge Attestation Discharge Attestation: The patient and all family members were given an opportunity to ask questions and understood the discharge instructions. Discharge instructions specifically effects, indications for sooner follow up or return to the emergency department, and the expected course of current diagnosis. Patient condition: Stable Medical Decision Making Differential Diagnosis Differential Diagnosis: Headache electrolyte imbalances recurrence of UTI Lab Data 03/04/25 11:38 03/04/25 11:38 Labs: Lab Results 03/04/25 03/04/25 Range/Units 11:38 12:16 WBC 12.6 H (3.6-11.0) Thou/mm3 RBC 3.61 L (4.00-5.20) Miln/mm3 Hgb 11.3 L (12.0-16.0) g/dL Hct 31.0 L (36.0-46.0) % MCV 86 (80-100) fL MCH 31.3 (25.0-35.0) pg MCHC 36.5 (31.0-37.0) g/dl RDW Std Deviation 37.4 (36.4-46.3) fL Plt Count 217 D (140-440) Thou/mm3 Neut % (Auto) 80 (37-80) % Lymph % (Auto) 11 (10-50) % [place] % (Auto) 6 (0-12) % Eos % (Auto) 0 (0-10) % Baso % (Auto) 0 (0-2.5) % Neut # (Auto) 10.1 H (1.8-7.7) Thou/mm3 Lymph # (Auto) 1.4 (1.0-4.8) Thou/mm3 [place] # (Auto) 0.8 (0.0-0.8) Thou/mm3 Eos # (Auto) 0.0 (0.0-0.5) Thou/mm3 Baso # (Auto) 0.1 (0.0-0.2) Thou/mm3 Immature Gran # (Auto) 0.32 H (0.00-0.00) Thou/mm3 Absolute Nucleated RBC 0.00 (0.00-0.00) Thou/mm3 Immature Gran % 3 H (0-0) % Nucleated RBC % 0 (0) /100 WBC Sodium 123 L D (136-145) mMol/L Potassium 4.6 D (3.4-5.1) mMol/L Chloride 92 L (98-107) mMol/L Carbon Dioxide 24.7 (20.0-31.0) mMol/L Anion Gap 6 L (7-16) BUN 8 L (9-23) mg/dL Creatinine 0.8 (0.6-1.3) mg/dL Estim Creat Clear Calc 63.9 (>60) mL/min eGFR > 60 (60 - ) See Note BUN/Creatinine Ratio 10 L (12-20) Ratio Glucose 210 H D (74-106) mg/dL Calculated Osmolality 252 L (275-295) Calcium 8.2 L (8.3-10.6) mg/dL Corrected Calcium 8.5 (8.5-10.1) mg/dL Total Bilirubin 0.5 (0.3-1.2) mg/dL AST 59 H (0-34) U/L ALT 38 (10-49) U/L Alkaline Phosphatase 104 (46-116) U/L Total Protein 6.2 (5.7-8.2) gm/dL Albumin 3.6 (3.4-4.8) gm/dL Globulin 2.6 (2.3-3.5) gm/dL Albumin/Globulin Ratio 1.4 (1.2-2.2) Lipase 33 (12-53) U/L Ur Collection Type Clean Catch Urine Color Lt-Yellow (Lt Yel-Yel) Urine Clarity Clear (Clear/Hazy) Urine pH 6.0 (5.0-7.0) Ur Specific [place] 1.007 (1.001-1.035) Urine Protein Negative (Neg - Trace) Urine Glucose (UA) 3+ A (Negative) Urine Ketones 1+ A (Negative) Urine Blood Negative (Negative) Urine Nitrite Negative (Negative) Urine Bilirubin Negative (Negative) Urine Urobilinogen (Auto) Negative (0.0-1.0) mg/dL Ur Leukocyte Esterase Positive (Negative) Urine RBC 1 (0-3) /hpf Urine WBC 9 H (0-5) /hpf Ur Squamous Epith Cells 6 H (0-5) /hpf Urine Bacteria None (None) Discharge Plan Plan Patient Disposition: HOME (Self Care) Patient condition on transfer: Stable Prescriptions/Referrals Prescriptions/Med Rec: New Percogesic 12.5-325 mg tablet 1 tab PO BID Qty: 10 0RF No Action lisinopril 20 MG tablet 20 mg PO QDAY Qty: 0 glimepiride 2 mg tablet 2 mg PO BID atenolol 25 mg tablet 25 mg PO QDAY simvastatin 20 mg tablet 20 mg PO HS tamsulosin 0.4 mg Capsule 0.4 mg PO QDAY 10 Days Qty: 10 0RF famotidine 20 mg tablet 20 mg PO QDAY Qty: 5 0RF ciprofloxacin HCl [Cipro] 500 mg tablet 500 mg PO BID Qty: 10 0RF hydrocodone-acetaminophen 5-300 mg tablet 1 tab PO Q8H MDD 3 doses PRN (Reason: pain) Qty: 6 0RF ketorolac 10 mg tablet 10 mg PO Q8H Qty: 14 0RF Rx Instructions: maximum total duration of 5 days from all oral, intranasal, or parenteral formulations Referrals: Yuriy Albarado FNP [Primary Care Provider] - In 1 week Problem List Clinical Impression: Headache Patient/Caregiver Discharge Instructions Other Activity Instructions:: Follow-up with your primary care provider take the medication as prescribed if there is worsening of symptoms talk to your primary care provider Education Materials: Self-Care for Headaches Print Language: Greenlandic Stand Alone Forms: Debbie Award Info., Patient Portal Info Letter, Work/School Release PA/CONTROLS PROJECT ENGINEER Supervising Physician PA/CONTROLS PROJECT ENGINEER Supervising Physician: Carlos Treadwell ENP
== END 2025-03-04 13:42 | disposition home or self-care (01) ==
PROVIDERS: Registered Nurse General Practice; Emergency Provider Emergency Medicine; PCP Nurse Practitioner Family
DX: R51.9 Headache, unspecified (principal); D72.829 Elevated white blood cell count, unspecified
CPT/HCPCS: 36415; 80053; 81001; 83690; 85025; 96372; 99283; J0780; J1885

== ENCOUNTER → 2025-05-28 | Outpatient (CLI) | payer MEDICAID, SELFPAY ==
--- NOTE | 2025-05-28 14:00 | XR_ITS ---
Examination: Breast ultrasound, unilateral, right complete Date and time of exam: April 28, 2025 1408 hours INDICATIONS: Outside mammogram December 19, 2024 10 mm focal asymmetry upper outer quadrant right breast Technique: Real-time lee scale ultrasonographic imaging performed right breast including all 4 quadrants as well as nipple retroareolar and axillary region. Findings: No cystic or solid mass IMPRESSION: BI-RADS Category 1: Negative study
--- NOTE | 2025-05-28 14:30 | XR_ITS ---
Examination: Diagnostic digital mammography, unilateral, right Computer aided detection 3-D breast Tomosynthesis, unilateral Date and time of exam: May 28, 2025 at 1431 hours INDICATIONS: Outside mammogram December 19, 2024 10 mm focal asymmetry upper outer quadrant right breast Technique: Nonmagnified MLO, CC views of the right breast have been obtained, reconstructed from 3-D Tomosynthesis images. R2 computer aided detection program utilized for evaluation of suspicious masses and/or abnormal calcifications. 3-D Tomosynthesis images obtained. Findings: Scattered areas of fibroglandular density Mild focal asymmetry remains upper right breast on the spot compression CC view Impression: BI-RADS category 3: Probably benign findings One additional 6 month right mammogram follow-up is needed
== END | disposition home or self-care (01) ==
LOC: CDIM 13:53
PROVIDERS: PCP Physician Assistant; Referring Provider Physician Assistant; Visit Provider Physician Assistant
DX: R92.331 Mammographic heterogeneous density, right breast (principal); N64.89 Other specified disorders of breast
CPT/HCPCS: 76641; 77061; 77065; G0279